=== PATIENT | male | born 1970 | race African-American/Black ===

== ENCOUNTER 2020-01-07 12:03 | Inpatient (IN) | payer OTHER ==
--- NOTE | 2020-01-07 18:20 | BHS.RME ---
Substance Use & Tx History - Substance Use History Alcohol Substance amount: 1pint of vodka/6 packs of 22 ozs of beer Frequency of use: Daily Substance route: Oral Date of Last Use: 01/07/20 Cocaine-Crack Substance amount: 200$ Frequency of use: More than 3 times per week Substance route: Smoking Date of Last Use: 01/06/20 - Last Treatment Date of last treatment: [facility] 09/19/19 to 09/23/19 Where was last treatment: Detox (09/19/19 to 10/03/19) Physical/Psych/Mental Status - Behavior Eye Contact: Normal - Cooperativeness Cooperativeness: Cooperative - Thinking Thought Processes: Logical Thought content: Future oriented - Physical Health Problems Is patient presently having any pain?: No Does patient presently have any injuries (include location): No Does patient currently have a fever: No CIWA Nausea/Vomitin Muscle Tremors: 3 Anxiety: 3 Agitation: 3 Paroxysmal Sweats: 1-Minimal Palms Moist Orientation: 0-Oriented Tacttile Disturbances: 0-None Auditory Disturbances: 0-None Visual Disturbances: 0-None Headache: 2-Mild CIWA-Ar Total Score: 14
--- NOTE | 2020-01-07 18:25 | HP ---
CIWA Score Nausea/Vomitin Muscle Tremors: 3 Anxiety: 3 Agitation: 3 Paroxysmal Sweats: 1-Minimal Palms Moist Orientation: 0-Oriented Tacttile Disturbances: 0-None Auditory Disturbances: 0-None Visual Disturbances: 0-None Headache: 2-Mild CIWA-Ar Total Score: 14 - Admission Criteria OASAS Guidelines: Admission for Medically Managed Detox: Requires at least one of the followin. CIWA greater than 12 2. Seizures within the past 24 hours 3. Delirium tremens within the past 24 hours 4. Hallucinations within the past 24 hours 5. Acute intervention needed for co occurring medical disorder 6. Acute intervention needed for co occurring psychiatric disorder 7. Severe withdrawal that cannot be handled at a lower level of care (continued vomiting, continued diarrhea, abnormal vital signs) requiring intravenous medication and/or fluids 8. Admitting History and Physical - Admission Chief Complaint: i need help to stop drinking alcohol,ccoaine abused History of Present Illness: this 50 years old male with alcohol and cocaine dependence seeking detox History Source: Patient Limitations to Obtaining History: No Limitations - Past Medical History Rheumatology: Yes: Other (osteoarthritis) Additional Past Medical History: osteoarthritis of right hip - Past Surgical History Past Surgical History: Yes: None - Smoking History Smoking history: Current every day smoker Have you smoked in the past 12 months: Yes Aproximately how many cigarettes per day: 20 - Alcohol/Substance Use Hx Alcohol Use: Yes History of Substance Use: reports: Cocaine - Social History Usual Living Arrangement: Yes: Alone Do you think of yourself as: Straight/Heterosexual (unemployed,nicotine dependence,positive eye setter machine,no legal issue) ADL: Independent Occupation: unemployed, 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 History of Recent Travel: No Admission ROS [facility] - [facility] Chief Complaint: i need help to stop drinking alcohol and cocaine Allergies/Adverse Reactions: Allergies Allergy/AdvReac Type Severity Reaction Status Date / Time Fish Containing Products Allergy Severe Swelling Verified 01/07/20 19:06 No Known Drug Allergies Allergy Unknown Verified 01/07/20 19:06 History of Present Illness: this 50 years old male with alcohol dependence,and cocaine dependence,seeking alcohol detox, multiple admissions in detox last 09/19/19 to 09/23/19 osteoarthritis of right hip on walker nicotine dependence longest sobriety 90 days plan for rehab after detox Exam Limitations: No Limitations - Ebola screening Have you traveled outside of the country in the last 21 days: No Have you had contact with anyone from an Ebola affected area: No Have you been sick,other than usual withdrawal symptoms: No Do you have a fever: No - Review of Systems Constitutional: Malaise, Night Sweats, Changes in sleep, Weakness EENT: reports: Nose Congestion Respiratory: reports: No Symptoms reported Cardiac: reports: No Symptoms Reported GI: reports: Nausea, Poor Appetite, Abdominal cramping : reports: No Symptoms Reported Musculoskeletal: reports: Back Pain, Muscle Pain Integumentary: reports: Dryness Neuro: reports: Headache, Tremors Endocrine: reports: No Symptoms Reported Hematology: reports: No Symptoms Reported Psychiatric: reports: No Sypmtoms Reported, Judgement Intact, Mood/Affect Appropiate, Orientated x3 Other Systems: Reviewed and Negative Patient History - Patient Medical History Hx Anemia: No Hx Asthma: No Hx Chronic Obstructive Pulmonary Disease (COPD): No Hx Cancer: No Hx Cardiac Disorders: No Hx Congestive Heart Failure: No Hx Hypertension: No Hx Hypercholesterolemia: No Hx Pacemaker: No HX Cerebrovascular Accident: No Hx Seizures: No Hx Dementia: No Hx Diabetes: No Hx Gastrointestinal Disorders: No Hx Liver Disease: No Hx Genitourinary Disorders: No Hx Sexually Transmitted Disorders: No Hx Renal Disease (ESRD): No Hx Thyroid Disease: No Hx Human Immunodeficiency Virus (HIV): No (2019 negative) Hx Hepatitis C: No Hx Depression: No Hx Suicide Attempt: No Hx Bipolar Disorder: No Hx Schizophrenia: No Other Medical History: no suicidal,no homicidal - Patient Surgical History Past Surgical History: No Hx Neurologic Surgery: No Hx Cataract Extraction: No Hx Cardiac Surgery: No Hx Lung Surgery: No Hx Breast Surgery: No Hx Breast Biopsy: No Hx Abdominal Surgery: No Hx Appendectomy: No Hx Cholecystectomy: No Hx Genitourinary Surgery: No Hx Section: No Hx Orthopedic Surgery: No Anesthesia Reaction: No - PPD History Previous Implant?: Yes Documented Results: Negative w/proof Date: 09/22/19 Results: 00.00 PPD to be Administered?: No - Smoking Cessation Smoking history: Current every day smoker Have you smoked in the past 12 months: Yes Aproximately how many cigarettes per day: 20 Cigars Per Day: 0 Hx Chewing Tobacco Use: No Initiated information on smoking cessation: Yes 'Breaking Loose' booklet given: 01/07/20 - Substance & Tx. History Hx Alcohol Use: Yes Hx Substance Use: Yes Substance Use Type: Alcohol, Cocaine Hx Substance Use Treatment: Yes ([facility] 09/19/19 to 09/23/19) - Substances abused Alcohol Substance route: Oral Frequency: Daily Amount used: 1 pint of vodka/6 packs of 22 ozs of beer Age of first use: 13 Date of last use: 01/07/20 Crack Substance route: Smoking Frequency: 3-6 times per week Amount used: 200$ Age of first use: 31 Date of last use: 01/06/20 Admission Physical Exam [facility] - Vital Signs Vital Signs: t97.1,p75,bp 142/85,r18 pulse ox 85 - Physical General Appearance: Yes: Appropriately Dressed, Moderate Distress, Tremorous, Irritable, Anxious HEENTM: Yes: Normocephalic, [place], Pharynx Normal Respiratory: Yes: Lungs Clear, Normal Breath Sounds, No Respiratory Distress Neck: Yes: Within Normal Limits, Supple, Trachea in good position Breast: Yes: Within Normal Limits Cardiology: Yes: Within Normal Limits, Regular Rhythm, Regular Rate Abdominal: Yes: Within Normal Limits, Normal Bowel Sounds, Soft Genitourinary: Yes: Within Normal Limits Back: Yes: Muscle Spasm Musculoskeletal: Yes: Back pain, Muscle Pain Extremities: Yes: Tremors, Other (pain in the right hip) Neurological: Yes: condenser tester II-XII NML intact, Fully Oriented, Alert, Motor Strength 5/5 Integumentary: Yes: Dry Lymphatic: Yes: Within Normal Limits - Diagnostic (1) Alcohol dependence with uncomplicated withdrawal Current Visit: No Status: Acute (2) Nicotine dependence Current Visit: No Status: Acute Qualifiers: Nicotine product type: cigarettes Substance use status: in withdrawal Qualified Code(s): F17.213 - Nicotine dependence, cigarettes, with withdrawal (3) Cocaine dependence Current Visit: No Status: Chronic Qualifiers: Substance use status: uncomplicated Qualified Code(s): F14.20 - Cocaine dependence, uncomplicated (4) Osteoarthritis (arthritis due to wear and tear of joints) Current Visit: No Status: Chronic Qualifiers: Osteoarthritis location: hip Osteoarthritis type: unspecified Laterality: bilateral Qualified Code(s): M16.0 - Bilateral primary osteoarthritis of hip (5) Walker as ambulation aid Current Visit: Yes Status: Acute Cleared for Admission [facility] - Detox or Rehab [facility] Level of Care: Medically Managed Detox Regimen/Protocol: Librium Breathalyzer - Breathalyzer Breathalyzer: 0.013 Urine Drug Screen - Test Device Lot number: [id number] Expiration date: 02/05/21 - Control Is test valid?: Yes - Results Drug screen NEGATIVE: No Urine drug screen results: JOSE G-Cocaine Inpatient Rehab Admission - Rehab Decision to Admit Inpatient rehab admission?: No
[2020-01-07] MEDS ORDERED: BISMUTH SUBSALICYLATE 524 MG/30 ML UD PO PRN (19:11)
[2020-01-07] MEDS ORDERED: ONDANSETRON *ODT* 4 MG TABLET SL ONE (19:11)
[2020-01-07] MEDS ORDERED: chlordiazePOXIDE HCL 25 MG CAPSULE PO PRN (19:11)
[2020-01-07] MEDS ORDERED: IBUPROFEN 400 MG TABLET (FP) PO PRN (19:11)
[2020-01-07] MEDS ORDERED: MAG HYDROX/AL HYDROX/SIMETH 30 ML UNIT-DOSE CUP PO PRN (19:11)
[2020-01-07] MEDS ORDERED: MENTHOL/PHENOL 1 EACH UD MM PRN (19:11)
[2020-01-07] MEDS ORDERED: MAGNESIUM HYDROX 2400MG/30ML ORAL SUSPENSION 30 ML CUP PO PRN (19:11)
[2020-01-07] MEDS ORDERED: ACETAMINOPHEN 325 MG TABLET (FP) PO PRN ×2 (19:11)
[2020-01-07] MEDS ORDERED: MAGNESIUM CITRATE 300 ML BOTTLE PO PRN (19:11)
[2020-01-07] MEDS ORDERED: METHOCARBAMOL 500 MG TABLET PO PRN (19:11)
[2020-01-07 19:14] VITALS: BMI 32.5
[2020-01-07] MEDS: hydrOXYzine PAMOATE 25 MG CAPSULE (FP) PO SCH (21:11)
[2020-01-07] MEDS: GABAPENTIN 300 MG CAPSULE PO SCH (21:12)
[2020-01-07] MEDS: THIAMINE HCL 100 MG TABLET (FP) PO SCH (21:12)
[2020-01-07] MEDS: MELATONIN 5 MG TABLETS PO SCH (22:22)
[2020-01-07] MEDS: chlordiazePOXIDE HCL 25 MG CAPSULE PO SCH (22:23)
[2020-01-08] MEDS: GABAPENTIN 300 MG CAPSULE PO SCH ×3 (05:27→22:22)
[2020-01-08] MEDS: hydrOXYzine PAMOATE 25 MG CAPSULE (FP) PO SCH ×2 (05:28→10:48)
[2020-01-08] MEDS: IBUPROFEN 400 MG TABLET (FP) PO PRN (05:28)
[2020-01-08] MEDS: chlordiazePOXIDE HCL 25 MG CAPSULE PO SCH (05:28)
[2020-01-08] MEDS ORDERED: LORazepam 1 MG TABLET PO PRN (09:56)
--- NOTE | 2020-01-08 09:57 | PN ---
S CIWA - CIWA Score Nausea/Vomitin-Mild Nausea/No Vomiting Muscle Tremors: 3 Anxiety: 3 Agitation: 2 Paroxysmal Sweats: 1-Minimal Palms Moist Orientation: 0-Oriented Tacttile Disturbances: 1-Very Mild Itch/Numbness Auditory Disturbances: 0-None Visual Disturbances: 1-Very Mild Sensitivity Headache: 1-Very Mild CIWA-Ar Total Score: 13 BHS Progress Note (SOAP) Subjective: 50 years old male admitted on 01/07/20 for alcohol withdrawal sx management treating with librium detox regiment feeling sleepy ambulating with walker slow steady reports feeling sleepy from librium requests ativan for alcohol detox discontinue librium begin ativan for alcohol withdrawal Objective: 01/08/20 09:59 Vital Signs - 24 hr 01/07/20 01/07/20 01/08/20 19:11 20:43 05:19 Temperature 97.7 F 97.1 F L 97.3 F L Pulse Rate 75 75 76 Respiratory 20 18 18 Rate Blood Pressure 149/95 121/82 149/92 O2 Sat by Pulse 95 98 Oximetry (%) 01/08/20 08:44 Temperature 97.8 F Pulse Rate 59 L Respiratory 16 Rate Blood Pressure 152/35 L O2 Sat by Pulse Oximetry (%) bp elevation 01/08/20 10:01 amlodipien 10 mg po 01/08/20 10:02 lab pending Assessment: 01/08/20 10:02 alcohol withdrawal hypertension 01/08/20 10:02 sitting on the edge of the bed eating breakfast tolerated food well Plan: ativan regiment amlodipine 10 mg po
[2020-01-08] MEDS: LORazepam 2 MG TABLET PO SCH ×3 (10:22→22:25)
[2020-01-08] MEDS: amLODIPine BESYLATE 10 MG TABLET (FP) PO SCH (10:22)
[2020-01-08] MEDS: PRENATAL VITAMINS W/ FOLIC ACID TABLET (FP) PO SCH (10:23)
[2020-01-08 12:29] LABS: HEMATOCRIT 41.2 % (35.4-49); HEMOGLOBIN 13.4 GM/dL (11.7-16.9); MCH 32.2 pg (25.7-33.7); MCHC 32.6 g/dl (32.0-35.9); MEAN CELL VOLUME 98.9 fl (80-96); MEAN PLT VOLUME 8.4 fl (7.5-11.1); PLATELET COUNT 338 K/MM3 (134-434); RBC 4.17 M/mm3 (4.00-5.60); RDW 13.6 % (11.9-15.9); WHITE BLOOD COUNT 4.6 K/mm3 (4.0-10.0)
[2020-01-08 12:46] LABS: ALBUMIN 3.4 g/dl (3.4-5.0); BLOOD UREA NITROGEN 15.5 mg/dL (7-18)
[2020-01-08 12:50] LABS: BILIRUBIN,TOTAL 0.7 mg/dL (0.2-1); TOT PROT 6.5 g/dl (6.4-8.2)
[2020-01-08] MEDS: THIAMINE HCL 100 MG TABLET (FP) PO SCH (22:22)
[2020-01-08] MEDS: MELATONIN 5 MG TABLETS PO SCH (22:22)
[2020-01-09] MEDS ORDERED: chlordiazePOXIDE HCL 25 MG CAPSULE PO SCH (05:00)
[2020-01-09] MEDS: LORazepam 2 MG TABLET PO SCH ×4 (05:32→22:10)
[2020-01-09] MEDS: IBUPROFEN 400 MG TABLET (FP) PO PRN (05:32)
[2020-01-09] MEDS: GABAPENTIN 300 MG CAPSULE PO SCH ×3 (05:32→22:10)
[2020-01-09] MEDS: PRENATAL VITAMINS W/ FOLIC ACID TABLET (FP) PO SCH (10:48)
[2020-01-09] MEDS: amLODIPine BESYLATE 10 MG TABLET (FP) PO SCH (10:49)
--- NOTE | 2020-01-09 10:55 | PN ---
S CIWA - CIWA Score Nausea/Vomitin-No Nausea/No Vomiting Muscle Tremors: 1-None Visible, but [place] Anxiety: 2 Agitation: 2 Paroxysmal Sweats: No Perspiration Orientation: 0-Oriented Tacttile Disturbances: 0-None Auditory Disturbances: 0-None Visual Disturbances: 2-Mild Sensitivity Headache: 1-Very Mild CIWA-Ar Total Score: 8 BHS Progress Note (SOAP) Subjective: 50 years old male admitted on 01/07/20 for alcohol withdrawal sx management treating with ativan detox regiment ambulating with walker slow steady from room to day room to nurse station Vital Signs - 24 hr 01/08/20 01/08/20 01/08/20 13:09 16:37 20:42 Temperature 97.5 F L 98.2 F 97.5 F L Pulse Rate 79 82 96 H Respiratory 20 18 20 Rate Blood Pressure 143/89 131/78 143/89 O2 Sat by Pulse 97 95 Oximetry (%) 01/09/20 01/09/20 06:00 08:50 Temperature 97.7 F 97.1 F L Pulse Rate 76 103 H Respiratory 16 18 Rate Blood Pressure 152/87 129/92 O2 Sat by Pulse 98 Oximetry (%) bp elevation continue amlodipine lisinopril 10 mg po bid initiated Objective: 01/09/20 10:53 Laboratory Tests 01/07/20 01/08/20 01/08/20 19:45 07:20 07:20 WBC RBC Hgb Hct MCV MCH MCHC RDW Plt Count MPV Sodium Potassium Chloride Carbon Dioxide Anion Gap BUN Creatinine Est GFR (CKD-EPI)AfAm Est GFR (CKD-EPI)NonAf Random Glucose Calcium Total Bilirubin AST ALT Alkaline Phosphatase Total Protein Albumin Syphilis Serology Non-reactive COVID-19 ([facility]IST[facility]O) Not detected HIV Ag/Ab Combo Qual Negative 01/08/20 01/08/20 07:20 07:20 WBC 4.6 RBC 4.17 Hgb 13.4 Hct 41.2 MCV 98.9 H MCH 32.2 MCHC 32.6 RDW 13.6 Plt Count 338 MPV 8.4 Sodium 143 Potassium 4.0 Chloride 114 H Carbon Dioxide 29 Anion Gap 0 L BUN 15.5 Creatinine 1.0 Est GFR (CKD-EPI)AfAm 101.26 Est GFR (CKD-EPI)NonAf 87.37 Random Glucose 91 Calcium 9.0 Total Bilirubin 0.7 AST 15 ALT 20 Alkaline Phosphatase 84 Total Protein 6.5 Albumin 3.4 Syphilis Serology COVID-19 (CRISTIANO) HIV Ag/Ab Combo Qual lab noted Assessment: 01/09/20 10:53 alcohol withdrawal hypertension obesity Plan: ativan regiment amlodipine 10 mg po lisinopril 10 mg po bid
[2020-01-09] MEDS: LISINOPRIL 10 MG TABLET (FP) PO SCH ×2 (13:04→22:10)
--- NOTE | 2020-01-09 21:25 | PN ---
S Progress Note Note: CALLED BY NURSING FOR ELEVATED BP Vital Signs - 24 hr 01/09/20 01/09/20 01/09/20 06:00 08:50 12:43 Temperature 97.7 F 97.1 F L 97.1 F L Pulse Rate 76 103 H 97 H Respiratory 16 18 20 Rate Blood Pressure 152/87 129/92 124/76 O2 Sat by Pulse 98 100 Oximetry (%) 01/09/20 16:35 Temperature 98.0 F Pulse Rate 102 H Respiratory 16 Rate Blood Pressure 145/102 H O2 Sat by Pulse Oximetry (%) p : METOPROLOL 25 MG X ONCE
[2020-01-09] MEDS ORDERED: METOPROLOL TARTRATE 25 MG TABLET (FP) PO ONE (21:30)
[2020-01-09] MEDS: MELATONIN 5 MG TABLETS PO SCH (22:10)
[2020-01-09] MEDS: THIAMINE HCL 100 MG TABLET (FP) PO SCH (22:11)
[2020-01-10] MEDS ORDERED: chlordiazePOXIDE HCL 10 MG CAPSULE PO PRN
[2020-01-10] MEDS ORDERED: chlordiazePOXIDE HCL 10 MG CAPSULE PO SCH (05:00)
[2020-01-10] MEDS: GABAPENTIN 300 MG CAPSULE PO SCH ×3 (05:22→22:44)
[2020-01-10] MEDS: LORazepam 1 MG TABLET PO SCH ×4 (05:22→22:44)
[2020-01-10] MEDS: IBUPROFEN 400 MG TABLET (FP) PO PRN (06:14)
[2020-01-10] MEDS: PRENATAL VITAMINS W/ FOLIC ACID TABLET (FP) PO SCH (10:09)
[2020-01-10] MEDS: LISINOPRIL 10 MG TABLET (FP) PO SCH (10:10)
[2020-01-10] MEDS: amLODIPine BESYLATE 10 MG TABLET (FP) PO SCH (10:10)
--- NOTE | 2020-01-10 10:29 | PN ---
S CIWA - CIWA Score Nausea/Vomitin-No Nausea/No Vomiting Muscle Tremors: 1-None Visible, but [place] Anxiety: 1-Mildly Anxious Agitation: 1-Slight > Activity Paroxysmal Sweats: No Perspiration Orientation: 0-Oriented Tacttile Disturbances: 0-None Auditory Disturbances: 0-None Visual Disturbances: 2-Mild Sensitivity Headache: 1-Very Mild CIWA-Ar Total Score: 6 BHS Progress Note (SOAP) Subjective: 50 years old male admitted on 01/07/20 for alcohol withdrawal sx management treating with ativan regiment ambulating with walker slow steady mr johnson states that he has right hip surgical procedure made on 01/20/20 and required pre op lab work encourage mr johnson bring in current lab result "the surgeon said I have too much nicotine in my blood" mr johnson requests re draw pre op blood sample sent to [facility] lab encourage mr johnson clarifies with surgical procedure facility emotional support given encourage mr johnson open conversation with the surgical facility for pre op instruction counselor and sign writer hand met with mr johnson who agrees to contact with the surgical facility for pre op blood work clarification mr johnson states that he smoke a pack of cigarette a day health teaching on cardiopulmonary insult from nicotine Objective: 01/10/20 10:29 Vital Signs - 24 hr 01/09/20 01/09/20 01/09/20 12:43 16:35 19:50 Temperature 97.1 F L 98.0 F 97.3 F L Pulse Rate 97 H 102 H 101 H Respiratory 20 16 16 Rate Blood Pressure 124/76 145/102 H 147/96 O2 Sat by Pulse 100 99 Oximetry (%) 01/10/20 01/10/20 06:09 08:28 Temperature 97.8 F 97.3 F L Pulse Rate 74 95 H Respiratory 18 20 Rate Blood Pressure 145/71 114/80 O2 Sat by Pulse 99 Oximetry (%) Laboratory Tests 01/07/20 01/08/20 01/08/20 19:45 07:20 07:20 WBC RBC Hgb Hct MCV MCH MCHC RDW Plt Count MPV Sodium Potassium Chloride Carbon Dioxide Anion Gap BUN Creatinine Est GFR (CKD-EPI)AfAm Est GFR (CKD-EPI)NonAf Random Glucose Calcium Total Bilirubin AST ALT Alkaline Phosphatase Total Protein Albumin Syphilis Serology Non-reactive COVID-19 ([facility]) Not detected HIV Ag/Ab Combo Qual Negative 01/08/20 01/08/20 07:20 07:20 WBC 4.6 RBC 4.17 Hgb 13.4 Hct 41.2 MCV 98.9 H MCH 32.2 MCHC 32.6 RDW 13.6 Plt Count 338 MPV 8.4 Sodium 143 Potassium 4.0 Chloride 114 H Carbon Dioxide 29 Anion Gap 0 L BUN 15.5 Creatinine 1.0 Est GFR (CKD-EPI)AfAm 101.26 Est GFR (CKD-EPI)NonAf 87.37 Random Glucose 91 Calcium 9.0 Total Bilirubin 0.7 AST 15 ALT 20 Alkaline Phosphatase 84 Total Protein 6.5 Albumin 3.4 Syphilis Serology COVID-19 ([facility]IST[facility]O) HIV Ag/Ab Combo Qual lab noted Assessment: 01/10/20 10:29 alcohol withdrawal Plan: ativan regiment
[2020-01-10 14:33] LABS: URINE APPEARANCE CLEAR; URINE BILIRUBIN NEGATIVE (NEGATIVE); URINE COLOR YELLOW; URINE GLUCOSE (UA) NEGATIVE (NEGATIVE); URINE KETONE NEGATIVE (NEGATIVE); URINE LEUK ESTERASE NEGATIVE (NEGATIVE); URINE NITRITE NEGATIVE (NEGATIVE); URINE PROTEIN NEGATIVE (NEGATIVE); URINE UROBILINOGEN 0.2 mg/dL (0.2-1.0)
[2020-01-10] MEDS ORDERED: LISINOPRIL 20 MG TABLET (FP) PO ONE (22:00)
[2020-01-10] MEDS: THIAMINE HCL 100 MG TABLET (FP) PO SCH (22:44)
[2020-01-10] MEDS: MELATONIN 5 MG TABLETS PO SCH (22:44)
[2020-01-11] MEDS ORDERED: LORazepam 0.5 MG TABLET PO PRN
[2020-01-11] MEDS ORDERED: chlordiazePOXIDE HCL 10 MG CAPSULE PO SCH (05:00)
[2020-01-11] MEDS: IBUPROFEN 400 MG TABLET (FP) PO PRN (06:18)
[2020-01-11] MEDS: LORazepam 0.5 MG TABLET PO SCH ×2 (06:18→10:45)
[2020-01-11] MEDS: GABAPENTIN 300 MG CAPSULE PO SCH ×2 (06:18→14:38)
[2020-01-11] MEDS ORDERED: LISINOPRIL 20 MG TABLET (FP) PO SCH (10:00)
[2020-01-11] MEDS: PRENATAL VITAMINS W/ FOLIC ACID TABLET (FP) PO SCH (10:44)
[2020-01-11] MEDS: amLODIPine BESYLATE 10 MG TABLET (FP) PO SCH (10:44)
--- NOTE | 2020-01-11 11:20 | DS ---
[facility] Detox Discharge Summary Admission Date: 01/07/20 Discharge Date: 01/11/20 - History Present History: Alcohol Dependence Additional Comments: 50 years old grossly obese male ambulating with walker was admitted on 01/07/20 for alcohol withdrawal sx management treated with ativan detox regiment mr johnson prefers to go to rehab today for his alcohol recovery alert oriented x 3 speech clearly coherently respiratory clear lung sounds bilaterally on auscultation abdomen soft round obese no rebound tenderness skin warm and dry Pertinent Past History: time for discharge 48 minutes treatment team met with mr johnson to discuss the benefits of ativan regiment completion mr johnson states that he is ready to go to [facility] for his alcohol recovery - Physical Exam Results Vital Signs: Vital Signs Temperature 97.1 F L 01/11/20 08:38 Pulse Rate 100 H 01/11/20 08:38 Respiratory Rate 20 01/11/20 08:38 Blood Pressure 94/67 01/11/20 08:38 O2 Sat by Pulse Oximetry (%) 95 01/11/20 06:39 Pertinent Admission Physical Exam Findings: alcohol withdrawal Vital Signs - 24 hr 01/10/20 01/10/20 01/10/20 12:36 16:54 20:54 Temperature 97.8 F 97.5 F L 98.0 F Pulse Rate 67 95 H 87 Respiratory 20 18 18 Rate Blood Pressure 117/75 129/92 130/91 O2 Sat by Pulse 95 96 Oximetry (%) 01/11/20 01/11/20 06:39 08:38 Temperature 97.5 F L 97.1 F L Pulse Rate 80 100 H Respiratory 18 20 Rate Blood Pressure 130/89 94/67 O2 Sat by Pulse 95 Oximetry (%) long history of hypertension tolerates amlodipine and lisinopril well encourage bp monitoring prior to antihypertensive medication administration - Treatment Hospital Course: Detox Protocol Followed, Detoxed Safely, Responded well, Discharged Condition Good, Rehab Referral Accepted Patient has Accepted a Rehab Referral to: [facility] - Medication Discharge Medications: Ambulatory Orders Gabapentin 300 mg PO TID 09/19/19 Gabapentin [Neurontin -] 300 mg PO TID capsule 09/23/19 Ibuprofen [Motrin -] 800 mg PO TID PRN tablet 09/23/19 - Diagnosis (1) Substance induced mood disorder Current Visit: Yes Status: Suspected (2) Hypertension Current Visit: Yes Status: Chronic Qualifiers: Hypertension type: essential hypertension Qualified Code(s): I10 - Essential (primary) hypertension (3) Nicotine dependence Current Visit: Yes Status: Acute Qualifiers: Nicotine product type: cigarettes Substance use status: in withdrawal Qualified Code(s): F17.213 - Nicotine dependence, cigarettes, with withdrawal (4) Alcohol dependence with uncomplicated withdrawal Current Visit: Yes Status: Acute (5) Walker as ambulation aid Current Visit: Yes Status: Chronic - AMA Did Patient Leave Against Medical Advice: No CIWA Score - CIWA Score Nausea/Vomitin-No Nausea/No Vomiting Muscle Tremors: 1-None Visible, but [place] Anxiety: 1-Mildly Anxious Agitation: 0-Normal Activity Paroxysmal Sweats: No Perspiration Orientation: 0-Oriented Tacttile Disturbances: 0-None Auditory Disturbances: 0-None Visual Disturbances: 1-Very Mild Sensitivity Headache: 0-None Present CIWA-Ar Total Score: 3
[2020-01-11 13:19] VITALS: BP 107/80; PULSE 118; TEMP 97.3
[2020-01-12] MEDS ORDERED: LORazepam 0.5 MG TABLET PO ONE (05:00)
[2020-01-12] MEDS ORDERED: chlordiazePOXIDE HCL 10 MG CAPSULE PO ONE (05:00)
== END 2020-01-11 15:34 | disposition other institution (70) | DRG 774 ==
LOC: YASAS 12:03 → Y3N 19:04
PROVIDERS: ADMIT Allergy & Immunology; ATTEND Allergy & Immunology
PROC: HZ2ZZZZ Detoxification Services for Substance Abuse Treatment (ICD-10-PCS; principal; 2020-01-07)
DX: F10.230 Alcohol dependence with withdrawal, uncomplicated (principal); F14.20 Cocaine dependence, uncomplicated; F17.213 Nicotine dependence, cigarettes, with withdrawal; F19.24 Other psychoactive substance dependence with psychoactive substance-induced mood disorder; I10 Essential (primary) hypertension; M16.0 Bilateral primary osteoarthritis of hip; E66.9 Obesity, unspecified; Z68.32 Body mass index [BMI] 32.0-32.9, adult; R26.2 Difficulty in walking, not elsewhere classified; Z99.89 Dependence on other enabling machines and devices; Z91.013 Allergy to seafood
CPT/HCPCS: 36415; 80053; 81003; 85027; 86780; 87389; U0003

== ENCOUNTER 2020-01-11 15:36 | Inpatient (IN) | payer OTHER ==
--- NOTE | 2020-01-11 11:23 | HP ---
[facility] Rehab Assess/Revision - Admission History Admitted to Rehab from: [facility] Date of Admission to Rehab: 01/11/20 - Findings Detox History & Physical reviewed: Yes Concur with findings: Yes Comments/Additional Findings: trasnferred from detox to rehab admission as per protocol Inpatient Rehab Admission - Rehab Decision to Admit Inpatient rehab admission?: Yes - Initial Determination Are CD services needed?: Yes Free of communicable disease: Yes Not in need of hospitalization: Yes - Rehab Admission Criteria Previous failed treatment: Yes Poor recovery environment: Yes Comorbidities: Yes Lacks judgement: Yes Patient is meeting Inpatient Rehab admission criteria:: Yes
[~2020-01-11 15:36] MED LIST: LOPERAMIDE HCL 2 MG CAPSULE PO PRN; MAGNESIUM CITRATE 300 ML BOTTLE PO PRN; MAGNESIUM HYDROX 2400MG/30ML ORAL SUSPENSION 30 ML CUP PO PRN; NICOTINE POLACRILEX 2 MG GUM BUC PRN; P-EPHED 60MG/TRIPROLIDI 2.5MG TABLET PO PRN; guaiFENesin 200 MG/10 ML 10 ML UNIT-DOSE CUPS PO PRN
[2020-01-11] MEDS: hydrOXYzine PAMOATE 25 MG CAPSULE (FP) PO SCH ×2 (17:59→21:45)
[2020-01-11] MEDS: MELATONIN 5 MG TABLETS PO SCH (21:45)
[2020-01-11] MEDS: GABAPENTIN 300 MG CAPSULE PO SCH ×2 (21:45→21:46)
[2020-01-11] MEDS: THIAMINE HCL 100 MG TABLET (FP) PO SCH (21:45)
[2020-01-11] MEDS: LISINOPRIL 20 MG TABLET (FP) PO SCH (21:47)
[2020-01-11] MEDS: IBUPROFEN 400 MG TABLET (FP) PO PRN (21:48)
[2020-01-12] MEDS: hydrOXYzine PAMOATE 25 MG CAPSULE (FP) PO SCH ×2 (06:26→09:55)
[2020-01-12] MEDS: GABAPENTIN 300 MG CAPSULE PO SCH ×3 (06:26→23:41)
[2020-01-12] MEDS: IBUPROFEN 400 MG TABLET (FP) PO PRN ×2 (06:26→13:50)
[2020-01-12] MEDS: PRENATAL VITAMINS W/ FOLIC ACID TABLET (FP) PO SCH (09:54)
[2020-01-12] MEDS: amLODIPine BESYLATE 10 MG TABLET (FP) PO SCH (09:54)
[2020-01-12] MEDS: LISINOPRIL 20 MG TABLET (FP) PO SCH ×2 (09:54→23:41)
[2020-01-12] MEDS: NICOTINE 7 MG/24 HOURS TOPICAL PATCH TD SCH (09:55)
[2020-01-12] MEDS ORDERED: PT OWN MED DRAWER 7, Y5N ONE (13:19)
[2020-01-12] MEDS: MELATONIN 5 MG TABLETS PO SCH (23:41)
[2020-01-12] MEDS: THIAMINE HCL 100 MG TABLET (FP) PO SCH (23:41)
[2020-01-13] MEDS: IBUPROFEN 400 MG TABLET (FP) PO PRN ×3 (01:41→19:31)
[2020-01-13] MEDS: GABAPENTIN 300 MG CAPSULE PO SCH ×3 (06:43→21:19)
[2020-01-13] MEDS: amLODIPine BESYLATE 10 MG TABLET (FP) PO SCH (10:04)
[2020-01-13] MEDS: PRENATAL VITAMINS W/ FOLIC ACID TABLET (FP) PO SCH (10:04)
[2020-01-13] MEDS: NICOTINE 7 MG/24 HOURS TOPICAL PATCH TD SCH (10:04)
[2020-01-13] MEDS: LISINOPRIL 20 MG TABLET (FP) PO SCH ×2 (10:04→21:19)
[2020-01-13] MEDS: ACETAMINOPHEN 325 MG TABLET (FP) PO PRN ×2 (13:37→21:22)
[2020-01-13] MEDS: MELATONIN 5 MG TABLETS PO SCH (21:19)
[2020-01-13] MEDS: THIAMINE HCL 100 MG TABLET (FP) PO SCH (21:19)
[2020-01-14] MEDS: GABAPENTIN 300 MG CAPSULE PO SCH ×3 (06:27→22:05)
[2020-01-14] MEDS: IBUPROFEN 400 MG TABLET (FP) PO PRN ×3 (06:27→23:43)
[2020-01-14] MEDS: LISINOPRIL 20 MG TABLET (FP) PO SCH ×2 (09:14→22:05)
[2020-01-14] MEDS: amLODIPine BESYLATE 10 MG TABLET (FP) PO SCH (09:14)
[2020-01-14] MEDS: ACETAMINOPHEN 325 MG TABLET (FP) PO PRN ×2 (09:14→18:29)
[2020-01-14] MEDS: PRENATAL VITAMINS W/ FOLIC ACID TABLET (FP) PO SCH (09:15)
[2020-01-14] MEDS: NICOTINE 7 MG/24 HOURS TOPICAL PATCH TD SCH (09:15)
[2020-01-14] MEDS: CYCLOBENZAPRINE HCL 10 MG TABLET (FP) PO PRN ×2 (13:17→22:05)
[2020-01-14] MEDS: hydrOXYzine PAMOATE 25 MG CAPSULE (FP) PO PRN ×2 (15:13→22:05)
[2020-01-14] MEDS: MELATONIN 5 MG TABLETS PO SCH (22:04)
[2020-01-14] MEDS: THIAMINE HCL 100 MG TABLET (FP) PO SCH (22:04)
[2020-01-14] MEDS: MAG HYDROX/AL HYDROX/SIMETH 30 ML UNIT-DOSE CUP PO PRN (23:43)
[2020-01-15] MEDS: IBUPROFEN 400 MG TABLET (FP) PO PRN ×2 (06:24→19:18)
[2020-01-15] MEDS: GABAPENTIN 300 MG CAPSULE PO SCH ×3 (06:24→22:18)
[2020-01-15] MEDS: CYCLOBENZAPRINE HCL 10 MG TABLET (FP) PO PRN (06:24)
[2020-01-15] MEDS: LISINOPRIL 20 MG TABLET (FP) PO SCH ×2 (09:56→22:19)
[2020-01-15] MEDS: amLODIPine BESYLATE 10 MG TABLET (FP) PO SCH (09:56)
[2020-01-15] MEDS: PRENATAL VITAMINS W/ FOLIC ACID TABLET (FP) PO SCH (09:56)
[2020-01-15] MEDS: NICOTINE 7 MG/24 HOURS TOPICAL PATCH TD SCH (09:56)
[2020-01-15] MEDS: ACETAMINOPHEN 325 MG TABLET (FP) PO PRN (09:57)
[2020-01-15] MEDS: hydrOXYzine PAMOATE 25 MG CAPSULE (FP) PO PRN ×2 (13:01→19:20)
[2020-01-15] MEDS: MAG HYDROX/AL HYDROX/SIMETH 30 ML UNIT-DOSE CUP PO PRN (19:17)
[2020-01-15] MEDS: MELATONIN 5 MG TABLETS PO SCH (22:18)
[2020-01-15] MEDS: THIAMINE HCL 100 MG TABLET (FP) PO SCH (22:19)
[2020-01-16] MEDS: GABAPENTIN 300 MG CAPSULE PO SCH ×3 (06:00→22:14)
[2020-01-16] MEDS: IBUPROFEN 400 MG TABLET (FP) PO PRN ×3 (06:00→17:06)
[2020-01-16] MEDS: CYCLOBENZAPRINE HCL 10 MG TABLET (FP) PO PRN (06:01)
[2020-01-16] MEDS: PRENATAL VITAMINS W/ FOLIC ACID TABLET (FP) PO SCH (10:02)
[2020-01-16] MEDS: hydrOXYzine PAMOATE 25 MG CAPSULE (FP) PO PRN (10:02)
[2020-01-16] MEDS: NICOTINE 7 MG/24 HOURS TOPICAL PATCH TD SCH (10:03)
[2020-01-16] MEDS: LISINOPRIL 20 MG TABLET (FP) PO SCH (10:05)
[2020-01-16] MEDS: amLODIPine BESYLATE 10 MG TABLET (FP) PO SCH (10:45)
[2020-01-16] MEDS: ACETAMINOPHEN 325 MG TABLET (FP) PO PRN ×2 (15:34→22:14)
--- NOTE | 2020-01-16 15:52 | PN ---
[facility] Progress Note Note: As per the nurse, Ms Mounika Kapadia, the pt has preop appointment tomorrow for scheduled surgery of 01/27/20 at [facility]. Also spoke to his counselor, Ms Gunnar Small who was communicated to by the [facility]. She reports she has made transportation arrangements for pt's safe discharge in the morning. Vital Signs - 24 hr 01/15/20 01/15/20 01/16/20 20:42 21:24 06:37 Pulse Rate 110 H 109 H Respiratory 18 Rate Blood Pressure 106/70 149/84 O2 Sat by Pulse 95 97 Oximetry (%) 01/16/20 01/16/20 10:00 15:10 Pulse Rate 110 H Respiratory Rate Blood Pressure 102/78 O2 Sat by Pulse 97 Oximetry (%) Pt may be discharged tomorrow to follow up with his doctors for his scheduled preop clearance /surgery. Saw pt who is agreeable to poc.
--- NOTE | 2020-01-16 17:04 | DS ---
[facility] Rehab Discharge Summary - [facility] Rehab Discharge Summary Admission Date: 01/11/20 Discharge Date: 01/17/20 - History Present History: Alcohol dependence, Cocaine dependence Additional Comments: Pt reports he has a Surgeon, Dr. Antunez and previous primary care in the [place]. Reports he would like to stay under one location and will set up primary care with [facility] when discharged. Pertinent Past History: Seasonal Allergies Osteoarthritis Chronic Hip condition(scheduled for surgery on 01/27/20 at orthopedic [place] [facility] with Dr. Smith Antunez per pt and pt document) Walker as ambulatory aid - Discharge Physical Exam Vital Signs: Vital Signs Temperature 97.2 F L 01/15/20 07:09 Pulse Rate 110 H 01/16/20 10:00 Respiratory Rate 18 01/16/20 06:37 Blood Pressure 102/78 01/16/20 10:00 O2 Sat by Pulse Oximetry (%) 97 01/16/20 15:10 Alert o x 3 nad oob ambulating with walker Head;Normocephalic,Cassie,eomi cardiac:s1 s2, rrr lungs:ctab Abdomen:soft,+bs,nt,nd extremities:no edema,skin intact Pertinent Admission Physical Exam Findings: Pt was referred from detox. Stable and unchanged - Treatment Discharge Condition: Discharge condition good (Pt was seen on 01/16/20 and medically stable.) Hospital Course: Pt completed detox and was referred to rehab but has to follow up for preop appointment for surgery of Hip tomorrow, 01/17/20. Pt was referred to aftercare and will follow up with [facility] for CD program. - Medication Discharge Medications: Ambulatory Orders Gabapentin 300 mg PO TID 09/19/19 Gabapentin [Neurontin -] 300 mg PO TID capsule 09/23/19 Ibuprofen [Motrin -] 800 mg PO TID PRN tablet 09/23/19 Gabapentin 300 mg PO TID 01/12/20 - Medication-Assisted Treatment (MAT) Medication-Assisted Treatment (MAT): No - Discharge Instructions Diet, activity, other medical instructions: Diet:Regular Activity: oob ad linette with walker Other medical instructions:Follow up with scheduled appointments as recommended. - Diagnosis (1) Alcohol use disorder Status: Chronic (2) Nicotine dependence Status: Chronic Qualifiers: Nicotine product type: cigarettes Substance use status: uncomplicated Qualified Code(s): F17.210 - Nicotine dependence, cigarettes, uncomplicated (3) Cocaine dependence Status: Chronic Qualifiers: Substance use status: uncomplicated Qualified Code(s): F14.20 - Cocaine dependence, uncomplicated (4) Osteoarthritis (arthritis due to wear and tear of joints) Status: Chronic Qualifiers: Osteoarthritis location: hip Osteoarthritis type: unspecified Laterality: bilateral Qualified Code(s): M16.0 - Bilateral primary osteoarthritis of hip (5) Seasonal allergies Status: Chronic Qualifiers: Allergic rhinitis trigger: other Qualified Code(s): J30.89 - Other allergic rhinitis (6) Walker as ambulation aid Status: Chronic - Follow-up Referral Minutes to complete discharge: 25 - AMA Did Patient Leave Against Medical Advice: No Additional Comments: addendum:pt declined Lisinopril and Norvasc ordered in detox due to elevated BP. reports no hx of HTN or Medications. Pt states he will like to follow up with primary care for further evaluation if necessary. Pt reports he has own Gabapentin at home.
[2020-01-16] MEDS ORDERED: cloNIDine HCL 0.1 MG TABLET PO PRN (17:21)
[2020-01-16] MEDS: THIAMINE HCL 100 MG TABLET (FP) PO SCH (22:14)
[2020-01-16] MEDS: MELATONIN 5 MG TABLETS PO SCH (22:14)
[2020-01-16] MEDS: MAG HYDROX/AL HYDROX/SIMETH 30 ML UNIT-DOSE CUP PO PRN (22:17)
[2020-01-17] MEDS: IBUPROFEN 400 MG TABLET (FP) PO PRN (02:51)
[2020-01-17] MEDS: GABAPENTIN 300 MG CAPSULE PO SCH (06:38)
[2020-01-17 07:44] VITALS: BP 130/85; PULSE 105; TEMP 98.2
--- NOTE | 2020-01-17 07:46 | PN ---
[facility] Progress Note Note: Patient is scheduled for early discharge today was seen and evaluated at bedside. He is alert and oriented x 3, in no acute distress, ambulates with a walker and vital signs stable. Patient is medically stable to be discharged home today. He is to follow up with Dr. Antunez at [facility] for preop. surgical evaluation. Patient's pulse rate is HR 105. Patient instructed to follow up with his PCP. Vital Signs Temperature 98.2 F 01/17/20 06:45 Pulse Rate 105 H 01/17/20 06:45 Respiratory Rate 18 01/17/20 06:45 Blood Pressure 130/85 01/17/20 06:45 O2 Sat by Pulse Oximetry (%) 98 01/17/20 06:45 Action: Discharged safely to home [employer] [facility] as per prior arrangement
== END 2020-01-17 07:00 | disposition home or self-care (01) | DRG 772 ==
LOC: YASAS 15:36 → Y3E 15:38
PROVIDERS: ADMIT Allergy & Immunology; ATTEND Allergy & Immunology
PROC: HZ42ZZZ Group Counseling for Substance Abuse Treatment, Cognitive-Behavioral (ICD-10-PCS; principal; 2020-01-11)
DX: F10.20 Alcohol dependence, uncomplicated (principal); F14.20 Cocaine dependence, uncomplicated; F17.210 Nicotine dependence, cigarettes, uncomplicated; M16.0 Bilateral primary osteoarthritis of hip; J30.89 Other allergic rhinitis; R26.2 Difficulty in walking, not elsewhere classified; Z99.89 Dependence on other enabling machines and devices

== ENCOUNTER 2020-07-10 10:41 | Inpatient (IN) | payer OTHER ==
[2020-07-10] MEDS ORDERED: MAGNESIUM CITRATE 300 ML BOTTLE PO PRN (12:15)
[2020-07-10] MEDS ORDERED: ACETAMINOPHEN 325 MG TABLET (FP) PO PRN ×2 (12:15)
[2020-07-10] MEDS ORDERED: MAGNESIUM HYDROX 2400MG/30ML ORAL SUSPENSION 30 ML CUP PO PRN (12:15)
[2020-07-10] MEDS ORDERED: MAG HYDROX/AL HYDROX/SIMETH 30 ML UNIT-DOSE CUP PO PRN (12:15)
[2020-07-10] MEDS ORDERED: MENTHOL/PHENOL 1 EACH UD MM PRN (12:15)
[2020-07-10] MEDS ORDERED: chlordiazePOXIDE HCL 25 MG CAPSULE PO PRN (12:15)
[2020-07-10] MEDS ORDERED: NICOTINE POLACRILEX 2 MG GUM BUC PRN (12:15)
[2020-07-10] MEDS ORDERED: METHOCARBAMOL 500 MG TABLET PO PRN (12:15)
[2020-07-10] MEDS ORDERED: ONDANSETRON *ODT* 4 MG TABLET SL PRN (12:15)
[2020-07-10 12:21] VITALS: BMI 34.0
[2020-07-10] MEDS: hydrOXYzine PAMOATE 25 MG CAPSULE (FP) PO SCH ×3 (13:27→23:07)
[2020-07-10] MEDS: GABAPENTIN 400 MG CAPSULE PO SCH ×2 (13:27→23:06)
[2020-07-10] MEDS: NICOTINE 14 MG/24 HOURS TOPICAL PATCH TD SCH (13:27)
[2020-07-10] MEDS: chlordiazePOXIDE HCL 25 MG CAPSULE PO SCH ×2 (18:26→23:07)
[2020-07-10] MEDS: BISMUTH SUBSALICYLATE 262 MG/15 ML BTL PO PRN (18:27)
[2020-07-10 18:57] LABS: HEMATOCRIT 38.2 % (35.4-49); HEMOGLOBIN 12.8 GM/dL (11.7-16.9); MCH 31.4 pg (25.7-33.7); MCHC 33.6 g/dl (32.0-35.9); MEAN CELL VOLUME 93.5 fl (80-96); MEAN PLT VOLUME 8.6 fl (7.5-11.1); PLATELET COUNT 412 K/MM3 (134-434); RBC 4.09 M/mm3 (4.00-5.60); RDW 13.7 % (11.9-15.9); WHITE BLOOD COUNT 8.3 K/mm3 (4.0-10.0)
[2020-07-10 18:58] LABS: POTASSIUM 3.4 mmol/L (3.5-5.1)
[2020-07-10 19:03] LABS: CALCIUM 9.8 mg/dL (8.5-10.1)
[2020-07-10 19:04] LABS: ALBUMIN 4.2 g/dl (3.4-5.0); BLOOD UREA NITROGEN 11.4 mg/dL (7-18)
[2020-07-10 19:07] LABS: BILIRUBIN,TOTAL 0.7 mg/dL (0.2-1)
[2020-07-10] MEDS: MELATONIN 5 MG TABLETS PO SCH (23:06)
[2020-07-10] MEDS: THIAMINE HCL 100 MG TABLET (FP) PO SCH (23:07)
[2020-07-11] MEDS: chlordiazePOXIDE HCL 25 MG CAPSULE PO SCH ×4 (05:57→22:37)
[2020-07-11] MEDS: GABAPENTIN 400 MG CAPSULE PO SCH ×3 (05:58→22:38)
[2020-07-11] MEDS: hydrOXYzine PAMOATE 25 MG CAPSULE (FP) PO SCH ×5 (05:59→22:38)
[2020-07-11] MEDS: LORATADINE 10 MG TABLET PO SCH (10:37)
[2020-07-11] MEDS: PRENATAL VITAMINS W/ FOLIC ACID TABLET (FP) PO SCH (10:38)
[2020-07-11] MEDS: NICOTINE 14 MG/24 HOURS TOPICAL PATCH TD SCH (10:38)
[2020-07-11] MEDS ORDERED: POTASSIUM CHLORIDE ORAL LIQUID 20 MEQ/15 ML PO ONE (16:40)
[2020-07-11] MEDS: THIAMINE HCL 100 MG TABLET (FP) PO SCH (22:38)
[2020-07-11] MEDS: MELATONIN 5 MG TABLETS PO SCH (22:38)
[2020-07-11] MEDS: POTASSIUM CHLORIDE ORAL LIQUID 20 MEQ/15 ML PO SCH (22:38)
[2020-07-12] MEDS: GABAPENTIN 400 MG CAPSULE PO SCH ×3 (05:26→22:58)
[2020-07-12] MEDS: hydrOXYzine PAMOATE 25 MG CAPSULE (FP) PO SCH ×5 (06:25→22:59)
[2020-07-12] MEDS: chlordiazePOXIDE HCL 25 MG CAPSULE PO SCH ×4 (06:26→22:59)
[2020-07-12] MEDS: LORATADINE 10 MG TABLET PO SCH (10:16)
[2020-07-12] MEDS: NICOTINE 14 MG/24 HOURS TOPICAL PATCH TD SCH (10:16)
[2020-07-12] MEDS: PRENATAL VITAMINS W/ FOLIC ACID TABLET (FP) PO SCH (10:17)
[2020-07-12] MEDS: POTASSIUM CHLORIDE ORAL LIQUID 20 MEQ/15 ML PO SCH ×2 (10:18→22:59)
[2020-07-12 12:30] LABS: POTASSIUM 4.2 mmol/L (3.5-5.1)
[2020-07-12 12:37] LABS: BLOOD UREA NITROGEN 12.2 mg/dL (7-18); CALCIUM 9.2 mg/dL (8.5-10.1)
[2020-07-12 12:38] LABS: ALBUMIN 3.4 g/dl (3.4-5.0)
[2020-07-12 12:40] LABS: BILIRUBIN,TOTAL 0.6 mg/dL (0.2-1); TOT PROT 6.6 g/dl (6.4-8.2)
[2020-07-12 12:41] LABS: CREATININE 0.8 mg/dL (0.55-1.3)
[2020-07-12 14:25] LABS: INR 1.03 (0.83-1.09); PROTHROMBIN TIME (PATIENT) 12.6 SEC (9.7-13.0)
[2020-07-12] MEDS: IBUPROFEN 400 MG TABLET (FP) PO PRN (22:57)
[2020-07-12] MEDS: THIAMINE HCL 100 MG TABLET (FP) PO SCH (22:58)
[2020-07-12] MEDS: MELATONIN 5 MG TABLETS PO SCH (22:59)
[2020-07-13] MEDS ORDERED: chlordiazePOXIDE HCL 10 MG CAPSULE PO PRN
[2020-07-13] MEDS: GABAPENTIN 400 MG CAPSULE PO SCH ×3 (06:13→23:00)
[2020-07-13] MEDS: hydrOXYzine PAMOATE 25 MG CAPSULE (FP) PO SCH ×5 (06:13→23:00)
[2020-07-13] MEDS: chlordiazePOXIDE HCL 10 MG CAPSULE PO SCH ×4 (06:13→23:04)
[2020-07-13] MEDS: LORATADINE 10 MG TABLET PO SCH (10:10)
[2020-07-13] MEDS: PRENATAL VITAMINS W/ FOLIC ACID TABLET (FP) PO SCH (10:10)
[2020-07-13] MEDS: NICOTINE 14 MG/24 HOURS TOPICAL PATCH TD SCH (10:11)
[2020-07-13] MEDS: BISMUTH SUBSALICYLATE 262 MG/15 ML BTL PO PRN ×3 (10:13→19:25)
[2020-07-13] MEDS: MELATONIN 5 MG TABLETS PO SCH (23:00)
[2020-07-13] MEDS: THIAMINE HCL 100 MG TABLET (FP) PO SCH (23:00)
[2020-07-14] MEDS: chlordiazePOXIDE HCL 10 MG CAPSULE PO SCH ×2 (05:49→17:31)
[2020-07-14] MEDS: GABAPENTIN 400 MG CAPSULE PO SCH ×3 (05:50→21:47)
[2020-07-14] MEDS: hydrOXYzine PAMOATE 25 MG CAPSULE (FP) PO SCH ×5 (05:50→22:47)
[2020-07-14] MEDS: NICOTINE 14 MG/24 HOURS TOPICAL PATCH TD SCH (11:08)
[2020-07-14] MEDS: PRENATAL VITAMINS W/ FOLIC ACID TABLET (FP) PO SCH (11:08)
[2020-07-14] MEDS: LORATADINE 10 MG TABLET PO SCH (11:08)
[2020-07-14] MEDS: IBUPROFEN 400 MG TABLET (FP) PO PRN (17:32)
[2020-07-14] MEDS: MELATONIN 5 MG TABLETS PO SCH (22:47)
[2020-07-14] MEDS: THIAMINE HCL 100 MG TABLET (FP) PO SCH (22:47)
[2020-07-15] MEDS ORDERED: chlordiazePOXIDE HCL 10 MG CAPSULE PO ONE (05:00)
[2020-07-15] MEDS: GABAPENTIN 400 MG CAPSULE PO SCH ×2 (05:46→13:11)
[2020-07-15] MEDS: hydrOXYzine PAMOATE 25 MG CAPSULE (FP) PO SCH ×3 (05:47→14:55)
[2020-07-15 09:35] VITALS: TEMP 97.3
[2020-07-15] MEDS: PRENATAL VITAMINS W/ FOLIC ACID TABLET (FP) PO SCH (11:07)
[2020-07-15] MEDS: NICOTINE 14 MG/24 HOURS TOPICAL PATCH TD SCH (11:07)
[2020-07-15] MEDS: LORATADINE 10 MG TABLET PO SCH (11:41)
[2020-07-15 13:53] VITALS: BP 138/86; PULSE 108
== END 2020-07-15 15:41 | disposition other institution (70) | DRG 774 ==
LOC: YASAS 10:41 → Y6N 12:52
PROVIDERS: ADMIT Allergy & Immunology; ATTEND Allergy & Immunology
PROC: HZ2ZZZZ Detoxification Services for Substance Abuse Treatment (ICD-10-PCS; principal; 2020-07-10)
DX: F10.230 Alcohol dependence with withdrawal, uncomplicated (principal); F14.20 Cocaine dependence, uncomplicated; F17.213 Nicotine dependence, cigarettes, with withdrawal; F19.24 Other psychoactive substance dependence with psychoactive substance-induced mood disorder; E87.6 Hypokalemia; I10 Essential (primary) hypertension; M25.551 Pain in right hip; Z96.642 Presence of left artificial hip joint; Z99.89 Dependence on other enabling machines and devices; Z91.013 Allergy to seafood
CPT/HCPCS: 36415; 80053; 82947; 85027; 85610; 86780; 87389; C9803; U0003

== ENCOUNTER 2020-07-15 15:52 | Inpatient (IN) | payer OTHER ==
[~2020-07-15 15:52] MED LIST changes: +MAG HYDROX/AL HYDROX/SIMETH 30 ML UNIT-DOSE CUP PO PRN; +NICOTINE POLACRILEX 2 MG GUM BC PRN; -NICOTINE POLACRILEX 2 MG GUM BUC PRN
[2020-07-15] MEDS: GABAPENTIN 400 MG CAPSULE PO SCH ×2 (16:03→21:17)
[2020-07-15] MEDS: MELATONIN 5 MG TABLETS PO SCH (21:17)
[2020-07-15] MEDS: THIAMINE HCL 100 MG TABLET (FP) PO SCH (21:18)
[2020-07-16] MEDS: GABAPENTIN 400 MG CAPSULE PO SCH ×3 (06:12→21:30)
[2020-07-16] MEDS: LORATADINE 10 MG TABLET PO SCH (11:55)
[2020-07-16] MEDS: NICOTINE 14 MG/24 HOURS TOPICAL PATCH TD SCH (11:55)
[2020-07-16] MEDS: PRENATAL VITAMINS W/ FOLIC ACID TABLET (FP) PO SCH (11:55)
[2020-07-16] MEDS: METHOCARBAMOL 500 MG TABLET PO PRN ×2 (14:31→21:30)
[2020-07-16] MEDS: MELATONIN 5 MG TABLETS PO SCH (21:30)
[2020-07-16] MEDS: THIAMINE HCL 100 MG TABLET (FP) PO SCH (21:30)
[2020-07-16] MEDS: IBUPROFEN 400 MG TABLET (FP) PO PRN (21:31)
[2020-07-17] MEDS: GABAPENTIN 400 MG CAPSULE PO SCH ×3 (06:02→21:50)
[2020-07-17] MEDS: ACETAMINOPHEN 325 MG TABLET (FP) PO PRN (06:03)
[2020-07-17] MEDS: LORATADINE 10 MG TABLET PO SCH (10:19)
[2020-07-17] MEDS: PRENATAL VITAMINS W/ FOLIC ACID TABLET (FP) PO SCH (10:20)
[2020-07-17] MEDS: NICOTINE 14 MG/24 HOURS TOPICAL PATCH TD SCH (10:20)
[2020-07-17] MEDS: METHOCARBAMOL 500 MG TABLET PO PRN ×2 (10:21→16:55)
[2020-07-17] MEDS: IBUPROFEN 400 MG TABLET (FP) PO PRN ×2 (14:15→19:40)
[2020-07-17] MEDS: MELATONIN 5 MG TABLETS PO SCH (21:49)
[2020-07-17] MEDS: THIAMINE HCL 100 MG TABLET (FP) PO SCH (21:50)
[2020-07-18] MEDS: IBUPROFEN 400 MG TABLET (FP) PO PRN ×3 (06:06→18:10)
[2020-07-18] MEDS: METHOCARBAMOL 500 MG TABLET PO PRN ×2 (06:06→12:33)
[2020-07-18] MEDS: GABAPENTIN 400 MG CAPSULE PO SCH ×3 (06:07→21:59)
[2020-07-18] MEDS: PRENATAL VITAMINS W/ FOLIC ACID TABLET (FP) PO SCH (10:10)
[2020-07-18] MEDS: LORATADINE 10 MG TABLET PO SCH (10:10)
[2020-07-18] MEDS: NICOTINE 14 MG/24 HOURS TOPICAL PATCH TD SCH (10:10)
[2020-07-18] MEDS: ACETAMINOPHEN 325 MG TABLET (FP) PO PRN ×2 (10:11→22:52)
[2020-07-18] MEDS: MELATONIN 5 MG TABLETS PO SCH (21:59)
[2020-07-18] MEDS: THIAMINE HCL 100 MG TABLET (FP) PO SCH (21:59)
[2020-07-19] MEDS: GABAPENTIN 400 MG CAPSULE PO SCH (07:09)
[2020-07-19] MEDS: IBUPROFEN 400 MG TABLET (FP) PO PRN (07:09)
[2020-07-19] MEDS: METHOCARBAMOL 500 MG TABLET PO PRN (07:09)
[2020-07-19 07:12] VITALS: BP 135/94; PULSE 97; TEMP 97.5
== END 2020-07-19 09:15 | disposition home or self-care (01) | DRG 772 ==
LOC: YASAS 15:52 → Y5N 15:53
PROVIDERS: ADMIT Allergy & Immunology; ATTEND Allergy & Immunology
PROC: HZ42ZZZ Group Counseling for Substance Abuse Treatment, Cognitive-Behavioral (ICD-10-PCS; principal; 2020-07-15)
DX: F10.20 Alcohol dependence, uncomplicated (principal); F14.20 Cocaine dependence, uncomplicated; F17.210 Nicotine dependence, cigarettes, uncomplicated; I10 Essential (primary) hypertension; J30.2 Other seasonal allergic rhinitis; Z96.643 Presence of artificial hip joint, bilateral; Z99.89 Dependence on other enabling machines and devices; Z91.013 Allergy to seafood
CPT/HCPCS: C9803; U0003

== ENCOUNTER 2020-08-10 10:43 | Inpatient (IN) | payer OTHER ==
[2020-08-10 11:28] VITALS: BMI 34.4
[2020-08-10] MEDS ORDERED: MENTHOL/PHENOL 1 EACH UD MM PRN (11:54)
[2020-08-10] MEDS ORDERED: ACETAMINOPHEN 325 MG TABLET (FP) PO PRN ×2 (11:54)
[2020-08-10] MEDS ORDERED: MAGNESIUM HYDROX 2400MG/30ML ORAL SUSPENSION 30 ML CUP PO PRN (11:54)
[2020-08-10] MEDS ORDERED: NICOTINE POLACRILEX 2 MG GUM BUC PRN (11:54)
[2020-08-10] MEDS ORDERED: MAG HYDROX/AL HYDROX/SIMETH 30 ML UNIT-DOSE CUP PO PRN (11:54)
[2020-08-10] MEDS ORDERED: MAGNESIUM CITRATE 300 ML BOTTLE PO PRN (11:54)
[2020-08-10] MEDS ORDERED: BISMUTH SUBSALICYLATE 262 MG/15 ML BTL PO PRN (11:54)
[2020-08-10] MEDS ORDERED: chlordiazePOXIDE HCL 25 MG CAPSULE PO PRN (11:54)
[2020-08-10] MEDS ORDERED: ONDANSETRON *ODT* 4 MG TABLET SL PRN (11:54)
[2020-08-10] MEDS: chlordiazePOXIDE HCL 25 MG CAPSULE PO SCH ×2 (12:33→18:37)
[2020-08-10] MEDS: PRENATAL VITAMINS W/ FOLIC ACID TABLET (FP) PO SCH (12:34)
[2020-08-10] MEDS: GABAPENTIN 400 MG CAPSULE PO SCH (12:34)
[2020-08-10 14:45] LABS: HEMATOCRIT 42.7 % (35.4-49); HEMOGLOBIN 13.9 GM/dL (11.7-16.9); MCH 30.5 pg (25.7-33.7); MCHC 32.6 g/dl (32.0-35.9); MEAN CELL VOLUME 93.6 fl (80-96); MEAN PLT VOLUME 7.8 fl (7.5-11.1); PLATELET COUNT 453 K/MM3 (134-434); RBC 4.56 M/mm3 (4.00-5.60); RDW 14.9 % (11.9-15.9); WHITE BLOOD COUNT 6.7 K/mm3 (4.0-10.0)
[2020-08-10] MEDS: hydrOXYzine PAMOATE 25 MG CAPSULE (FP) PO SCH ×2 (15:09→18:37)
[2020-08-10 15:15] LABS: POTASSIUM 3.2 mmol/L (3.5-5.1)
[2020-08-10 15:17] LABS: ALBUMIN 4.3 g/dl (3.4-5.0); BLOOD UREA NITROGEN 7.2 mg/dL (7-18); CALCIUM 9.5 mg/dL (8.5-10.1)
[2020-08-10 15:22] LABS: BILIRUBIN,TOTAL 0.7 mg/dL (0.2-1)
[2020-08-11] MEDS: hydrOXYzine PAMOATE 25 MG CAPSULE (FP) PO SCH ×6 (00:14→23:11)
[2020-08-11] MEDS: MELATONIN 5 MG TABLETS PO SCH ×2 (00:14→23:11)
[2020-08-11] MEDS: GABAPENTIN 400 MG CAPSULE PO SCH ×5 (00:14→23:11)
[2020-08-11] MEDS: chlordiazePOXIDE HCL 25 MG CAPSULE PO SCH ×5 (00:14→23:11)
[2020-08-11] MEDS: THIAMINE HCL 100 MG TABLET (FP) PO SCH ×2 (00:14→23:11)
[2020-08-11] MEDS ORDERED: PATIENT'S OWN MEDICATION (NON-FORMULARY) (Meloxicam [Meloxicam] 15 MG Tablet) PO SCH (10:00)
[2020-08-11] MEDS: LORATADINE 10 MG TABLET PO SCH (10:06)
[2020-08-11] MEDS: PRENATAL VITAMINS W/ FOLIC ACID TABLET (FP) PO SCH (10:06)
[2020-08-11] MEDS ORDERED: POTASSIUM CHLORIDE TABS 20 MEQ TABLET.ER (FP) PO ONE ×2 (11:28→17:00)
[2020-08-12] MEDS: METHOCARBAMOL 500 MG TABLET PO PRN ×2 (01:57→14:23)
[2020-08-12] MEDS: IBUPROFEN 400 MG TABLET (FP) PO PRN ×2 (01:57→14:22)
[2020-08-12] MEDS: chlordiazePOXIDE HCL 25 MG CAPSULE PO SCH ×4 (05:28→23:00)
[2020-08-12] MEDS: GABAPENTIN 400 MG CAPSULE PO SCH ×3 (05:29→23:00)
[2020-08-12] MEDS: hydrOXYzine PAMOATE 25 MG CAPSULE (FP) PO SCH ×5 (07:23→23:04)
[2020-08-12] MEDS: LORATADINE 10 MG TABLET PO SCH (10:32)
[2020-08-12] MEDS: PRENATAL VITAMINS W/ FOLIC ACID TABLET (FP) PO SCH (10:32)
[2020-08-12] MEDS: THIAMINE HCL 100 MG TABLET (FP) PO SCH (23:00)
[2020-08-12] MEDS: MELATONIN 5 MG TABLETS PO SCH (23:00)
[2020-08-13] MEDS ORDERED: chlordiazePOXIDE HCL 10 MG CAPSULE PO PRN
[2020-08-13] MEDS: chlordiazePOXIDE HCL 10 MG CAPSULE PO SCH ×2 (05:19→10:34)
[2020-08-13] MEDS: hydrOXYzine PAMOATE 25 MG CAPSULE (FP) PO SCH ×2 (05:20→10:35)
[2020-08-13] MEDS: GABAPENTIN 400 MG CAPSULE PO SCH (05:20)
[2020-08-13 09:56] VITALS: BP 118/78; PULSE 88; TEMP 98
[2020-08-13] MEDS: PRENATAL VITAMINS W/ FOLIC ACID TABLET (FP) PO SCH (10:34)
[2020-08-13] MEDS: LORATADINE 10 MG TABLET PO SCH (10:34)
[2020-08-14] MEDS ORDERED: chlordiazePOXIDE HCL 10 MG CAPSULE PO SCH (05:00)
[2020-08-15] MEDS ORDERED: chlordiazePOXIDE HCL 10 MG CAPSULE PO ONE (05:00)
== END 2020-08-13 12:15 | disposition home or self-care (01) | DRG 774 ==
LOC: YASAS 10:43 → Y6N 11:35
PROVIDERS: ADMIT Allergy & Immunology; ATTEND Allergy & Immunology
PROC: HZ2ZZZZ Detoxification Services for Substance Abuse Treatment (ICD-10-PCS; principal; 2020-08-10)
DX: F10.230 Alcohol dependence with withdrawal, uncomplicated (principal); F14.20 Cocaine dependence, uncomplicated; F17.210 Nicotine dependence, cigarettes, uncomplicated; F19.24 Other psychoactive substance dependence with psychoactive substance-induced mood disorder; E87.6 Hypokalemia; I10 Essential (primary) hypertension; J30.89 Other allergic rhinitis; E66.9 Obesity, unspecified; Z68.34 Body mass index [BMI] 34.0-34.9, adult; Z96.643 Presence of artificial hip joint, bilateral; Z99.89 Dependence on other enabling machines and devices; Z91.013 Allergy to seafood
CPT/HCPCS: 36415; 80053; 84132; 85027; 86780; C9803; U0003

== ENCOUNTER 2020-10-19 11:52 | Inpatient (IN) | payer OTHER ==
[2020-10-19 14:09] VITALS: BMI 34.0
[2020-10-19] MEDS ORDERED: IBUPROFEN 400 MG TABLET (FP) PO PRN (15:47)
[2020-10-19] MEDS ORDERED: MAGNESIUM HYDROX 2400MG/30ML ORAL SUSPENSION 30 ML CUP PO PRN (15:47)
[2020-10-19] MEDS ORDERED: MENTHOL/PHENOL 1 EACH UD MM PRN (15:47)
[2020-10-19] MEDS ORDERED: MAG HYDROX/AL HYDROX/SIMETH 30 ML UNIT-DOSE CUP PO PRN (15:47)
[2020-10-19] MEDS ORDERED: ONDANSETRON *ODT* 4 MG TABLET SL PRN (15:47)
[2020-10-19] MEDS ORDERED: METHOCARBAMOL 500 MG TABLET PO PRN (15:47)
[2020-10-19] MEDS ORDERED: P-EPHED 60MG/TRIPROLIDI 2.5MG TABLET PO PRN (15:47)
[2020-10-19] MEDS ORDERED: ACETAMINOPHEN 325 MG TABLET (FP) PO PRN ×2 (15:47)
[2020-10-19] MEDS ORDERED: MAGNESIUM CITRATE 300 ML BOTTLE PO PRN (15:47)
[2020-10-19] MEDS ORDERED: BISMUTH SUBSALICYLATE 524 MG/30 ML UD PO PRN (15:47)
[2020-10-19] MEDS ORDERED: diazePAM 5 MG TABLET PO PRN (15:50)
[2020-10-19] MEDS ORDERED: MASKS NR ONE (18:59)
[2020-10-19] MEDS: hydrOXYzine PAMOATE 25 MG CAPSULE (FP) PO SCH ×2 (19:01→22:33)
[2020-10-19] MEDS: diazePAM 5 MG TABLET PO SCH ×2 (19:01→22:33)
[2020-10-19] MEDS: GABAPENTIN 100 MG CAPSULE PO SCH (22:33)
[2020-10-19] MEDS: MELATONIN 5 MG TABLETS PO SCH (22:33)
[2020-10-19] MEDS: THIAMINE HCL 100 MG TABLET (FP) PO SCH (22:33)
[2020-10-20] MEDS: GABAPENTIN 100 MG CAPSULE PO SCH ×3 (06:56→23:09)
[2020-10-20] MEDS: hydrOXYzine PAMOATE 25 MG CAPSULE (FP) PO SCH ×5 (06:56→23:09)
[2020-10-20] MEDS: diazePAM 5 MG TABLET PO SCH ×4 (06:59→23:10)
[2020-10-20] MEDS: PRENATAL VITAMINS W/ FOLIC ACID TABLET (FP) PO SCH (11:12)
[2020-10-20 12:19] LABS: HEMOGLOBIN 13.6 GM/dL (11.7-16.9); MCH 32.4 pg (25.7-33.7); MCHC 33.9 g/dl (32.0-35.9); MEAN CELL VOLUME 95.5 fl (80-96); PLATELET COUNT 426 K/MM3 (134-434); RBC 4.18 M/mm3 (4.00-5.60); RDW 14.4 % (11.9-15.9); WHITE BLOOD COUNT 5.3 K/mm3 (4.0-10.0)
[2020-10-20 12:21] LABS: ALBUMIN 3.6 g/dl (3.4-5.0); CALCIUM 9.2 mg/dL (8.5-10.1)
[2020-10-20 12:22] LABS: BLOOD UREA NITROGEN 9.3 mg/dL (7-18)
[2020-10-20 12:24] LABS: CREATININE 1.1 mg/dL (0.55-1.3)
[2020-10-20] MEDS: THIAMINE HCL 100 MG TABLET (FP) PO SCH (23:10)
[2020-10-20] MEDS: MELATONIN 5 MG TABLETS PO SCH (23:10)
[2020-10-21] MEDS: diazePAM 5 MG TABLET PO SCH ×3 (06:06→22:14)
[2020-10-21] MEDS: GABAPENTIN 100 MG CAPSULE PO SCH ×3 (06:06→22:14)
[2020-10-21] MEDS: hydrOXYzine PAMOATE 25 MG CAPSULE (FP) PO SCH ×5 (06:07→22:15)
[2020-10-21] MEDS: PRENATAL VITAMINS W/ FOLIC ACID TABLET (FP) PO SCH (10:46)
[2020-10-21] MEDS: THIAMINE HCL 100 MG TABLET (FP) PO SCH (22:14)
[2020-10-21] MEDS: MELATONIN 5 MG TABLETS PO SCH (22:17)
[2020-10-22] MEDS: GABAPENTIN 100 MG CAPSULE PO SCH ×3 (06:38→23:08)
[2020-10-22] MEDS: diazePAM 5 MG TABLET PO SCH ×2 (06:38→17:46)
[2020-10-22] MEDS: hydrOXYzine PAMOATE 25 MG CAPSULE (FP) PO SCH ×5 (06:38→23:08)
[2020-10-22] MEDS: PRENATAL VITAMINS W/ FOLIC ACID TABLET (FP) PO SCH (10:12)
[2020-10-22] MEDS: THIAMINE HCL 100 MG TABLET (FP) PO SCH (23:08)
[2020-10-22] MEDS: MELATONIN 5 MG TABLETS PO SCH (23:08)
[2020-10-23] MEDS ORDERED: diazePAM 5 MG TABLET PO ONE (06:00)
[2020-10-23] MEDS: GABAPENTIN 100 MG CAPSULE PO SCH (06:28)
[2020-10-23] MEDS: hydrOXYzine PAMOATE 25 MG CAPSULE (FP) PO SCH ×3 (06:28→13:33)
[2020-10-23 09:16] VITALS: BP 142/84; PULSE 105; TEMP 98.7
[2020-10-23] MEDS: PRENATAL VITAMINS W/ FOLIC ACID TABLET (FP) PO SCH (10:18)
[2020-10-23 13:01] LABS: SARS-CoV-2 NAA Not Detected
== END 2020-10-23 14:32 | disposition home or self-care (01) | DRG 774 ==
LOC: YASAS 11:52 → Y6N 15:59
PROVIDERS: ADMIT Allergy & Immunology; ATTEND Allergy & Immunology
PROC: HZ2ZZZZ Detoxification Services for Substance Abuse Treatment (ICD-10-PCS; principal; 2020-10-19)
DX: F10.230 Alcohol dependence with withdrawal, uncomplicated (principal); F14.20 Cocaine dependence, uncomplicated; F17.210 Nicotine dependence, cigarettes, uncomplicated; F19.24 Other psychoactive substance dependence with psychoactive substance-induced mood disorder; I10 Essential (primary) hypertension; R73.9 Hyperglycemia, unspecified; Z96.643 Presence of artificial hip joint, bilateral; Z99.89 Dependence on other enabling machines and devices; Z91.013 Allergy to seafood
CPT/HCPCS: 36415; 80053; 82947; 85027; 86780; 93005; 93010; C9803; U0003; U0005

== ENCOUNTER 2021-01-07 11:49 | Inpatient (IN) | payer OTHER ==
[2021-01-07 13:38] VITALS: BMI 35.2
[2021-01-07] MEDS ORDERED: diazePAM 5 MG TABLET PO PRN (13:56)
[2021-01-07] MEDS ORDERED: MAGNESIUM CITRATE 300 ML BOTTLE PO PRN (13:56)
[2021-01-07] MEDS ORDERED: MAG HYDROX/AL HYDROX/SIMETH 30 ML UNIT-DOSE CUP PO PRN (13:56)
[2021-01-07] MEDS ORDERED: BISMUTH SUBSALICYLATE 262 MG/15 ML BTL PO PRN (13:56)
[2021-01-07] MEDS ORDERED: NICOTINE 10 MG CARTRIDGE (INHALER) IH PRN (13:56)
[2021-01-07] MEDS ORDERED: ONDANSETRON *ODT* 4 MG TABLET SL PRN (13:56)
[2021-01-07] MEDS ORDERED: IBUPROFEN 400 MG TABLET (FP) PO PRN (13:56)
[2021-01-07] MEDS ORDERED: ACETAMINOPHEN 325 MG TABLET (FP) PO PRN ×2 (13:56)
[2021-01-07] MEDS ORDERED: MENTHOL/PHENOL 1 EACH UD MM PRN (13:56)
[2021-01-07] MEDS ORDERED: MAGNESIUM HYDROX 2400MG/30ML ORAL SUSPENSION 30 ML CUP PO PRN (13:56)
[2021-01-07] MEDS: PRENATAL VITAMINS W/ FOLIC ACID TABLET (FP) PO SCH (16:08)
[2021-01-07] MEDS: hydrOXYzine PAMOATE 25 MG CAPSULE (FP) PO SCH ×3 (16:08→23:09)
[2021-01-07] MEDS: diazePAM 5 MG TABLET PO SCH ×2 (18:27→23:09)
[2021-01-07] MEDS: MELATONIN 5 MG TABLETS PO SCH (23:08)
[2021-01-07] MEDS: THIAMINE HCL 100 MG TABLET (FP) PO SCH (23:09)
[2021-01-08] MEDS: hydrOXYzine PAMOATE 25 MG CAPSULE (FP) PO SCH (06:15)
[2021-01-08] MEDS: diazePAM 5 MG TABLET PO SCH ×4 (06:15→22:48)
[2021-01-08] MEDS ORDERED: PATIENT'S OWN MEDICATION (NON-FORMULARY) (Meloxicam [Meloxicam] 15 MG Tablet) PO SCH (10:00)
[2021-01-08] MEDS: PRENATAL VITAMINS W/ FOLIC ACID TABLET (FP) PO SCH (10:05)
[2021-01-08] MEDS ORDERED: IBUPROFEN 400 MG TABLET (FP) PO PRN (10:11)
[2021-01-08 10:21] LABS: HEMATOCRIT 40.7 % (35.4-49); HEMOGLOBIN 13.8 GM/dL (11.7-16.9); MCHC 33.9 g/dl (32.0-35.9); MEAN CELL VOLUME 97.3 fl (80-96); MEAN PLT VOLUME 8.6 fl (7.5-11.1); PLATELET COUNT 315 10^3/uL (134-434); RBC 4.18 M/mm3 (4.00-5.60); RDW 13.3 % (11.9-15.9); WHITE BLOOD COUNT 3.3 K/mm3 (4.0-10.0)
[2021-01-08 10:32] LABS: CALCIUM 8.5 mg/dL (8.5-10.1)
[2021-01-08 10:33] LABS: ALBUMIN 3.3 g/dl (3.4-5.0); BLOOD UREA NITROGEN 12.2 mg/dL (7-18)
[2021-01-08 10:36] LABS: CREATININE 0.9 mg/dL (0.55-1.3)
[2021-01-08 10:37] LABS: BILIRUBIN,TOTAL 1.2 mg/dL (0.2-1); TOT PROT 6.2 g/dl (6.4-8.2)
[2021-01-08 11:19] LABS: HIV INTERPRETATION NEGATIVE (NEGATIVE)
[2021-01-08] MEDS: METHOCARBAMOL 500 MG TABLET PO PRN (18:10)
[2021-01-08] MEDS: hydrOXYzine PAMOATE 25 MG CAPSULE (FP) PO PRN (18:10)
[2021-01-08] MEDS: THIAMINE HCL 100 MG TABLET (FP) PO SCH (22:47)
[2021-01-08] MEDS: MELATONIN 5 MG TABLETS PO SCH (22:48)
[2021-01-09] MEDS: diazePAM 5 MG TABLET PO SCH ×3 (06:47→22:32)
[2021-01-09] MEDS: PRENATAL VITAMINS W/ FOLIC ACID TABLET (FP) PO SCH (10:15)
[2021-01-09] MEDS ORDERED: LIDOCAINE 5% TOPICAL PATCH TP ONE (12:24)
[2021-01-09] MEDS: LIDOCAINE PATCH REMOVAL MC SCH (22:29)
[2021-01-09] MEDS: THIAMINE HCL 100 MG TABLET (FP) PO SCH (22:32)
[2021-01-09] MEDS: MELATONIN 5 MG TABLETS PO SCH (22:32)
[2021-01-09] MEDS: METHOCARBAMOL 500 MG TABLET PO PRN (22:32)
[2021-01-09] MEDS: hydrOXYzine PAMOATE 25 MG CAPSULE (FP) PO PRN (22:32)
[2021-01-10] MEDS: diazePAM 5 MG TABLET PO SCH ×2 (07:19→18:55)
[2021-01-10] MEDS: LIDOCAINE 5% TOPICAL PATCH TP SCH (10:49)
[2021-01-10] MEDS: PRENATAL VITAMINS W/ FOLIC ACID TABLET (FP) PO SCH (10:49)
[2021-01-10] MEDS: LIDOCAINE PATCH REMOVAL MC SCH (23:53)
[2021-01-10] MEDS: MELATONIN 5 MG TABLETS PO SCH (23:53)
[2021-01-10] MEDS: THIAMINE HCL 100 MG TABLET (FP) PO SCH (23:54)
[2021-01-11] MEDS ORDERED: diazePAM 5 MG TABLET PO ONE (06:00)
[2021-01-11] MEDS: PRENATAL VITAMINS W/ FOLIC ACID TABLET (FP) PO SCH (10:13)
[2021-01-11] MEDS: LIDOCAINE 5% TOPICAL PATCH TP SCH (10:13)
[2021-01-11 11:15] VITALS: BP 113/76; PULSE 83; TEMP 98.6
== END 2021-01-11 12:59 | disposition other institution (70) | DRG 774 ==
LOC: YASAS 11:49 → Y3N 15:01
PROVIDERS: ADMIT Allergy & Immunology; ATTEND Allergy & Immunology
PROC: HZ2ZZZZ Detoxification Services for Substance Abuse Treatment (ICD-10-PCS; principal; 2021-01-07)
DX: F10.230 Alcohol dependence with withdrawal, uncomplicated (principal); F14.20 Cocaine dependence, uncomplicated; F17.210 Nicotine dependence, cigarettes, uncomplicated; F19.24 Other psychoactive substance dependence with psychoactive substance-induced mood disorder; I10 Essential (primary) hypertension; M19.90 Unspecified osteoarthritis, unspecified site; R00.0 Tachycardia, unspecified; E66.9 Obesity, unspecified; Z68.35 Body mass index [BMI] 35.0-35.9, adult; R26.2 Difficulty in walking, not elsewhere classified; Z87.438 Personal history of other diseases of male genital organs; Z96.643 Presence of artificial hip joint, bilateral; Z91.013 Allergy to seafood; Z59.0 Homelessness
CPT/HCPCS: 36415; 80053; 85027; 86780; 87389; C9803; U0003; U0005

== ENCOUNTER 2021-01-11 13:17 | Inpatient (IN) | payer OTHER ==
[2021-01-11] MEDS ORDERED: MAGNESIUM CITRATE 300 ML BOTTLE PO PRN (15:39)
[2021-01-11] MEDS ORDERED: P-EPHED 60MG/TRIPROLIDI 2.5MG TABLET PO PRN (15:39)
[2021-01-11] MEDS ORDERED: MENTHOL/PHENOL 1 EACH UD MM PRN (15:39)
[2021-01-11] MEDS ORDERED: guaiFENesin 200 MG/10 ML 10 ML UNIT-DOSE CUPS PO PRN (15:39)
[2021-01-11] MEDS ORDERED: LOPERAMIDE HCL 2 MG CAPSULE PO PRN (15:39)
[2021-01-11] MEDS ORDERED: MAGNESIUM HYDROX 2400MG/30ML ORAL SUSPENSION 30 ML CUP PO PRN (15:39)
[2021-01-11] MEDS ORDERED: MAG HYDROX/AL HYDROX/SIMETH 30 ML UNIT-DOSE CUP PO PRN (15:39)
[2021-01-11] MEDS ORDERED: ACETAMINOPHEN 325 MG TABLET (FP) PO PRN (15:39)
[2021-01-11] MEDS: METHOCARBAMOL 500 MG TABLET PO PRN (17:27)
[2021-01-11] MEDS: THIAMINE HCL 100 MG TABLET (FP) PO SCH (22:01)
[2021-01-11] MEDS: MELATONIN 5 MG TABLETS PO SCH (22:01)
[2021-01-12] MEDS: hydrOXYzine PAMOATE 25 MG CAPSULE (FP) PO PRN ×2 (02:55→21:42)
[2021-01-12] MEDS: LORATADINE 10 MG TABLET PO SCH (11:17)
[2021-01-12] MEDS: NICOTINE 7 MG/24 HOURS TOPICAL PATCH TD SCH (11:17)
[2021-01-12] MEDS: PRENATAL VITAMINS W/ FOLIC ACID TABLET (FP) PO SCH (11:17)
[2021-01-12] MEDS: NICOTINE 10 MG CARTRIDGE (INHALER) IH PRN (18:38)
[2021-01-12] MEDS: THIAMINE HCL 100 MG TABLET (FP) PO SCH (21:41)
[2021-01-12] MEDS: MELATONIN 5 MG TABLETS PO SCH (21:41)
[2021-01-13] MEDS: PRENATAL VITAMINS W/ FOLIC ACID TABLET (FP) PO SCH (09:53)
[2021-01-13] MEDS: LORATADINE 10 MG TABLET PO SCH (09:53)
[2021-01-13] MEDS: NICOTINE 7 MG/24 HOURS TOPICAL PATCH TD SCH (09:53)
[2021-01-13] MEDS: NICOTINE 10 MG CARTRIDGE (INHALER) IH PRN ×2 (12:42→17:50)
[2021-01-13] MEDS: IBUPROFEN 400 MG TABLET (FP) PO PRN ×2 (14:15→21:33)
[2021-01-13] MEDS: METHOCARBAMOL 500 MG TABLET PO PRN ×2 (14:15→21:33)
[2021-01-13] MEDS: MELATONIN 5 MG TABLETS PO SCH (21:31)
[2021-01-13] MEDS: THIAMINE HCL 100 MG TABLET (FP) PO SCH (21:31)
[2021-01-14 07:09] VITALS: BP 120/77; PULSE 88; TEMP 97.6
[2021-01-14] MEDS: LORATADINE 10 MG TABLET PO SCH (10:16)
[2021-01-14] MEDS: METHOCARBAMOL 500 MG TABLET PO PRN (10:16)
[2021-01-14] MEDS: IBUPROFEN 400 MG TABLET (FP) PO PRN (10:16)
[2021-01-14] MEDS: PRENATAL VITAMINS W/ FOLIC ACID TABLET (FP) PO SCH (10:16)
[2021-01-14] MEDS: NICOTINE 7 MG/24 HOURS TOPICAL PATCH TD SCH (10:42)
== END 2021-01-14 13:50 | disposition left against medical advice (07) | DRG 770 ==
LOC: YASAS 13:17 → Y5N 13:18
PROVIDERS: ADMIT Allergy & Immunology; ATTEND Allergy & Immunology
PROC: HZ42ZZZ Group Counseling for Substance Abuse Treatment, Cognitive-Behavioral (ICD-10-PCS; principal; 2021-01-11)
DX: F10.20 Alcohol dependence, uncomplicated (principal); F14.20 Cocaine dependence, uncomplicated; F17.210 Nicotine dependence, cigarettes, uncomplicated; I10 Essential (primary) hypertension; E66.9 Obesity, unspecified; Z68.34 Body mass index [BMI] 34.0-34.9, adult; R26.2 Difficulty in walking, not elsewhere classified; Z99.89 Dependence on other enabling machines and devices

== ENCOUNTER 2021-09-10 19:22 | Inpatient (IN) | payer OTHER ==
[2021-09-10 20:02] VITALS: BMI 31.0
[2021-09-10] MEDS ORDERED: LOPERAMIDE HCL 2 MG CAPSULE PO PRN (23:55)
[2021-09-10] MEDS ORDERED: ONDANSETRON *ODT* 4 MG TABLET SL PRN (23:55)
[2021-09-10] MEDS ORDERED: MENTHOL/PHENOL 1 EACH UD MM PRN (23:55)
[2021-09-10] MEDS ORDERED: MAG HYDROX/AL HYDROX/SIMETH 30 ML UNIT-DOSE CUP PO PRN (23:55)
[2021-09-10] MEDS ORDERED: BISMUTH SUBSALICYLATE 524 MG/30 ML PO PRN (23:55)
[2021-09-10] MEDS ORDERED: IBUPROFEN 400 MG TABLET (FP) PO PRN (23:55)
[2021-09-10] MEDS ORDERED: MAGNESIUM HYDROX 2400MG/30ML ORAL SUSPENSION 30 ML CUP PO PRN (23:55)
[2021-09-10] MEDS ORDERED: MAGNESIUM CITRATE 300 ML BOTTLE PO PRN (23:55)
[2021-09-10] MEDS ORDERED: DICYCLOMINE HCL 10 MG CAPSULE PO PRN (23:55)
[2021-09-10] MEDS ORDERED: ACETAMINOPHEN 325 MG TABLET (FP) PO PRN ×2 (23:55)
[2021-09-11 10:01] LABS: HEMATOCRIT 43.2 % (35.4-49); HEMOGLOBIN 14.4 GM/dL (11.7-16.9); MCH 32.9 pg (25.7-33.7); MCHC 33.4 g/dl (32.0-35.9); MEAN CELL VOLUME 98.5 fl (80-96); MEAN PLT VOLUME 7.5 fl (7.5-11.1); PLATELET COUNT 409 10^3/uL (134-434); RBC 4.38 M/mm3 (4.00-5.60); RDW 13.5 % (11.9-15.9); WHITE BLOOD COUNT 6.4 K/mm3 (4.0-10.0)
[2021-09-11 10:15] LABS: CALCIUM 9.1 mg/dL (8.5-10.1)
[2021-09-11 10:16] LABS: ALBUMIN 3.6 g/dl (3.4-5.0); BLOOD UREA NITROGEN 12.8 mg/dL (7-18)
[2021-09-11 10:19] LABS: CREATININE 1.1 mg/dL (0.55-1.3); TOT PROT 6.9 g/dl (6.4-8.2)
[2021-09-11 10:21] LABS: BILIRUBIN,TOTAL 0.6 mg/dL (0.2-1)
[2021-09-11] MEDS: PRENATAL VITAMINS W/ FOLIC ACID TABLET (FP) PO SCH (10:22)
[2021-09-11] MEDS: NICOTINE 14 MG/24 HOURS TOPICAL PATCH TD SCH (10:23)
[2021-09-11] MEDS: diazePAM 5 MG TABLET PO SCH ×3 (10:56→22:44)
[2021-09-11] MEDS: NICOTINE 10 MG CARTRIDGE (INHALER) IH PRN (11:15)
[2021-09-11] MEDS: MELATONIN 5 MG TABLETS PO SCH (22:44)
[2021-09-11] MEDS: THIAMINE HCL 100 MG TABLET (FP) PO SCH (22:44)
[2021-09-11] MEDS: METHOCARBAMOL 500 MG TABLET PO PRN (22:44)
[2021-09-12] MEDS: diazePAM 5 MG TABLET PO SCH ×4 (05:44→22:49)
[2021-09-12] MEDS: PRENATAL VITAMINS W/ FOLIC ACID TABLET (FP) PO SCH (10:21)
[2021-09-12] MEDS: NICOTINE 14 MG/24 HOURS TOPICAL PATCH TD SCH (10:23)
[2021-09-12 14:08] LABS: SARS-CoV-2 NAA Not Detected (Not Detected)
[2021-09-12] MEDS: diazePAM 5 MG TABLET PO PRN (19:51)
[2021-09-12] MEDS: METHOCARBAMOL 500 MG TABLET PO PRN (22:49)
[2021-09-12] MEDS: MELATONIN 5 MG TABLETS PO SCH (22:49)
[2021-09-12] MEDS: THIAMINE HCL 100 MG TABLET (FP) PO SCH (22:49)
[2021-09-13] MEDS: diazePAM 5 MG TABLET PO SCH ×3 (06:01→22:52)
[2021-09-13] MEDS: diazePAM 5 MG TABLET PO PRN ×2 (10:03→18:36)
[2021-09-13] MEDS: PRENATAL VITAMINS W/ FOLIC ACID TABLET (FP) PO SCH (10:03)
[2021-09-13] MEDS: NICOTINE 14 MG/24 HOURS TOPICAL PATCH TD SCH (10:07)
[2021-09-13] MEDS: NICOTINE 10 MG CARTRIDGE (INHALER) IH PRN ×2 (10:57→18:35)
[2021-09-13] MEDS: LORATADINE 10 MG TABLET PO SCH (10:57)
[2021-09-13] MEDS: MELATONIN 5 MG TABLETS PO SCH (22:51)
[2021-09-13] MEDS: THIAMINE HCL 100 MG TABLET (FP) PO SCH (22:51)
[2021-09-14] MEDS: diazePAM 5 MG TABLET PO SCH ×2 (06:29→17:59)
[2021-09-14] MEDS: LORATADINE 10 MG TABLET PO SCH (09:25)
[2021-09-14] MEDS: PRENATAL VITAMINS W/ FOLIC ACID TABLET (FP) PO SCH (09:25)
[2021-09-14] MEDS: diazePAM 5 MG TABLET PO PRN (09:26)
[2021-09-14] MEDS: NICOTINE 14 MG/24 HOURS TOPICAL PATCH TD SCH (09:26)
[2021-09-14] MEDS: MELATONIN 5 MG TABLETS PO SCH (23:18)
[2021-09-14] MEDS: THIAMINE HCL 100 MG TABLET (FP) PO SCH (23:18)
[2021-09-15] MEDS: NICOTINE 10 MG CARTRIDGE (INHALER) IH PRN (06:00)
[2021-09-15] MEDS ORDERED: diazePAM 5 MG TABLET PO ONE (06:00)
[2021-09-15 07:07] VITALS: BP 138/99; PULSE 77; TEMP 97.4
== END 2021-09-15 09:30 | disposition home or self-care (01) | DRG 774 ==
LOC: YASAS 19:22 → Y3N 09-11 02:21
PROVIDERS: ADMIT Allergy & Immunology; ATTEND Allergy & Immunology
PROC: HZ2ZZZZ Detoxification Services for Substance Abuse Treatment (ICD-10-PCS; principal; 2021-09-11)
DX: F10.230 Alcohol dependence with withdrawal, uncomplicated (principal); F14.20 Cocaine dependence, uncomplicated; F12.20 Cannabis dependence, uncomplicated; F17.210 Nicotine dependence, cigarettes, uncomplicated; I10 Essential (primary) hypertension; J30.2 Other seasonal allergic rhinitis; M16.0 Bilateral primary osteoarthritis of hip; E66.9 Obesity, unspecified; Z68.31 Body mass index [BMI] 31.0-31.9, adult; Z99.89 Dependence on other enabling machines and devices; Z91.013 Allergy to seafood
CPT/HCPCS: 36415; 80053; 85027; 86780; 87811; C9803-CS; U0003; U0005

== ENCOUNTER 2022-08-23 11:31 | Inpatient (IN) | payer OTHER ==
[2022-08-23 12:07] VITALS: BMI 31.4
[2022-08-23] MEDS ORDERED: NALOXONE HCL (KLOXXADO) 8 MG SPRAY NS PRN (12:38)
[2022-08-23] MEDS ORDERED: MAGNESIUM HYDROX 2400MG/30ML ORAL SUSPENSION 30 ML CUP PO PRN (12:38)
[2022-08-23] MEDS ORDERED: BENZOCAINE/MENTHOL (CHLORASEPTIC ) LOZENGE MM PRN (12:38)
[2022-08-23] MEDS ORDERED: BENZONATATE 200 MG CAPSULE PO PRN (12:38)
[2022-08-23] MEDS ORDERED: ACETAMINOPHEN 325 MG TABLET (FP) PO PRN (12:38)
[2022-08-23] MEDS ORDERED: ONDANSETRON *ODT* 4 MG TABLET SL PRN (12:38)
[2022-08-23] MEDS ORDERED: guaiFENesin 600 MG TABLET.ER (FP) PO PRN (12:38)
[2022-08-23] MEDS ORDERED: LOPERAMIDE HCL 2 MG CAPSULE PO PRN (12:38)
[2022-08-23] MEDS ORDERED: DICYCLOMINE HCL 10 MG CAPSULE PO PRN (12:38)
[2022-08-23] MEDS ORDERED: NALOXONE HCL 0.4 MG/ML VIAL IM PRN (12:38)
[2022-08-23] MEDS ORDERED: BISMUTH SUBSALICYLATE 524 MG/30 ML PO PRN (12:38)
[2022-08-23] MEDS ORDERED: IBUPROFEN 600 MG TABLET (FP) PO PRN (12:38)
[2022-08-23] MEDS ORDERED: MAG HYDROX/AL HYDROX/SIMETH 30 ML UNIT-DOSE CUP PO PRN (12:38)
[2022-08-23] MEDS ORDERED: IBUPROFEN 400 MG TABLET (FP) PO PRN (12:38)
[2022-08-23] MEDS ORDERED: POLYETHYLENE GLYCOL (HEALTHYLAX) 3350 17 GM PACKET PO PRN (12:38)
[2022-08-23] MEDS: NICOTINE 10 MG CARTRIDGE (INHALER) IH PRN ×2 (14:38→20:42)
[2022-08-23] MEDS: THIAMINE HCL 100 MG TABLET (FP) PO SCH (22:41)
[2022-08-23] MEDS: hydrOXYzine PAMOATE 25 MG CAPSULE (FP) PO PRN (22:41)
[2022-08-23] MEDS: METHOCARBAMOL 500 MG TABLET PO PRN (22:41)
[2022-08-23] MEDS: MELATONIN 5 MG TABLETS PO SCH (22:41)
[2022-08-23] MEDS ORDERED: LORATADINE 10 MG TABLET PO ONE (23:04)
[2022-08-24] MEDS: PRENATAL VITAMINS W/ FOLIC ACID TABLET (FP) PO SCH (10:34)
[2022-08-24] MEDS: hydrOXYzine PAMOATE 25 MG CAPSULE (FP) PO PRN (10:35)
[2022-08-24] MEDS: LORATADINE 10 MG TABLET PO SCH (10:35)
[2022-08-24] MEDS: METHOCARBAMOL 500 MG TABLET PO PRN ×2 (10:35→22:48)
[2022-08-24 10:54] LABS: HEMATOCRIT 40.7 % (35.4-49); HEMOGLOBIN 13.7 GM/dL (11.7-16.9); MCH 32.1 pg (25.7-33.7); MCHC 33.5 g/dl (32.0-35.9); MEAN CELL VOLUME 95.7 fl (80-96); MEAN PLT VOLUME 7.7 fl (7.5-11.1); PLATELET COUNT 353 10^3/uL (134-434); RBC 4.25 M/mm3 (4.00-5.60); RDW 13.6 % (11.9-15.9); WHITE BLOOD COUNT 4.5 K/mm3 (4.0-10.0)
[2022-08-24 11:10] LABS: CALCIUM 9.2 mg/dL (8.5-10.1)
[2022-08-24 11:11] LABS: ALBUMIN 3.2 g/dl (3.4-5.0); BLOOD UREA NITROGEN 6.7 mg/dL (7-18)
[2022-08-24 11:15] LABS: BILIRUBIN,TOTAL 0.8 mg/dL (0.2-1); TOT PROT 6.1 g/dl (6.4-8.2)
[2022-08-24] MEDS: NICOTINE 10 MG CARTRIDGE (INHALER) IH PRN (14:40)
[2022-08-24] MEDS ORDERED: LORazepam 1 MG TABLET PO PRN (16:02)
[2022-08-24] MEDS: LORazepam 1 MG TABLET PO SCH ×2 (17:46→22:48)
[2022-08-24] MEDS: MELATONIN 5 MG TABLETS PO SCH (22:48)
[2022-08-24] MEDS: THIAMINE HCL 100 MG TABLET (FP) PO SCH (22:48)
[2022-08-25] MEDS: LORazepam 1 MG TABLET PO SCH ×4 (05:53→22:11)
[2022-08-25] MEDS: METHOCARBAMOL 500 MG TABLET PO PRN (10:47)
[2022-08-25] MEDS: PRENATAL VITAMINS W/ FOLIC ACID TABLET (FP) PO SCH (10:47)
[2022-08-25] MEDS: hydrOXYzine PAMOATE 25 MG CAPSULE (FP) PO PRN (10:47)
[2022-08-25] MEDS: LORATADINE 10 MG TABLET PO SCH (10:47)
[2022-08-25] MEDS: MELATONIN 5 MG TABLETS PO SCH (22:12)
[2022-08-25] MEDS: THIAMINE HCL 100 MG TABLET (FP) PO SCH (22:12)
[2022-08-26] MEDS ORDERED: LORazepam 0.5 MG TABLET PO PRN
[2022-08-26] MEDS: LORazepam 0.5 MG TABLET PO SCH ×4 (05:39→22:32)
[2022-08-26] MEDS: METHOCARBAMOL 500 MG TABLET PO PRN (10:45)
[2022-08-26] MEDS: PRENATAL VITAMINS W/ FOLIC ACID TABLET (FP) PO SCH (10:45)
[2022-08-26] MEDS: LORATADINE 10 MG TABLET PO SCH (10:46)
[2022-08-26] MEDS: hydrOXYzine PAMOATE 25 MG CAPSULE (FP) PO PRN (10:46)
[2022-08-26] MEDS: THIAMINE HCL 100 MG TABLET (FP) PO SCH (22:32)
[2022-08-26] MEDS: MELATONIN 5 MG TABLETS PO SCH (22:34)
[2022-08-27] MEDS ORDERED: LORazepam 0.5 MG TABLET PO ONE (05:00)
[2022-08-27 06:35] VITALS: BP 137/74; PULSE 93; RESP 18; TEMP 98.9
[2022-08-27] MEDS: PRENATAL VITAMINS W/ FOLIC ACID TABLET (FP) PO SCH (10:51)
[2022-08-27] MEDS: LORATADINE 10 MG TABLET PO SCH (10:51)
== END 2022-08-27 12:00 | disposition home or self-care (01) | DRG 774 ==
LOC: YASAS 11:31 → Y6N 13:00
PROVIDERS: ADMIT Allergy & Immunology; ATTEND Surgery
PROC: HZ2ZZZZ Detoxification Services for Substance Abuse Treatment (ICD-10-PCS; principal; 2022-08-23)
DX: F10.230 Alcohol dependence with withdrawal, uncomplicated (principal); F14.20 Cocaine dependence, uncomplicated; F17.210 Nicotine dependence, cigarettes, uncomplicated; I10 Essential (primary) hypertension; J30.2 Other seasonal allergic rhinitis; M16.0 Bilateral primary osteoarthritis of hip; E66.9 Obesity, unspecified; Z68.31 Body mass index [BMI] 31.0-31.9, adult; Z99.89 Dependence on other enabling machines and devices; Z28.310 Unvaccinated for COVID-19; Z28.9 Immunization not carried out for unspecified reason
CPT/HCPCS: 36415; 80053; 85027; 86780; 87811; C9803-CS; U0003; U0005

== ENCOUNTER 2024-01-22 11:07 | Inpatient (IN) | payer OTHER ==
[2024-01-22 11:29] VITALS: BMI 29.2
[2024-01-22] MEDS ORDERED: ACETAMINOPHEN 325 MG TABLET (FP) PO PRN (12:38)
[2024-01-22] MEDS ORDERED: IBUPROFEN 600 MG TABLET (FP) PO PRN (12:38)
[2024-01-22] MEDS ORDERED: BENZONATATE 200 MG CAPSULE PO PRN (12:38)
[2024-01-22] MEDS ORDERED: NALOXONE (NARCAN) HCL 4 MG/0.1 ML SPRAY NS PRN (12:38)
[2024-01-22] MEDS ORDERED: guaiFENesin 600 MG TABLET.ER (FP) PO PRN (12:38)
[2024-01-22] MEDS ORDERED: MAG HYDROX/AL HYDROX/SIMETH 30 ML UNIT-DOSE CUP PO PRN (12:38)
[2024-01-22] MEDS ORDERED: MAGNESIUM HYDROX 2400MG/30ML ORAL SUSPENSION 30 ML CUP PO PRN (12:38)
[2024-01-22] MEDS ORDERED: NALOXONE HCL 0.4 MG/ML VIAL IM PRN (12:38)
[2024-01-22] MEDS ORDERED: POLYETHYLENE GLYCOL (HEALTHYLAX) 3350 17 GM PACKET PO PRN (12:38)
[2024-01-22] MEDS ORDERED: DICYCLOMINE HCL 10 MG CAPSULE PO PRN (12:38)
[2024-01-22] MEDS ORDERED: IBUPROFEN 400 MG TABLET (FP) PO PRN (12:38)
[2024-01-22] MEDS ORDERED: BENZOCAINE/MENTHOL (CHLORASEPTIC ) LOZENGE MM PRN (12:38)
[2024-01-22] MEDS ORDERED: BISMUTH SUBSALICYLATE 262 MG/15 ML BTL PO PRN (12:38)
[2024-01-22] MEDS ORDERED: ONDANSETRON *ODT* 4 MG TABLET SL PRN (12:38)
[2024-01-22] MEDS: NICOTINE POLACRILEX 2 MG GUM BUC PRN (20:56)
[2024-01-22] MEDS: MELATONIN 5 MG TABLETS PO SCH (22:35)
[2024-01-22] MEDS: THIAMINE 100 MG TABLET PO SCH (22:35)
[2024-01-22] MEDS: METHOCARBAMOL 500 MG TABLET PO PRN (22:35)
[2024-01-23 09:19] LABS: HEMATOCRIT 38.2 % (35.4-49); HEMOGLOBIN 12.8 GM/dL (11.7-16.9); MCH 32.6 pg (25.7-33.7); MCHC 33.5 g/dl (32.0-35.9); MEAN CELL VOLUME 97.4 fl (80-96); MEAN PLT VOLUME 8.4 fl (7.5-11.1); PLATELET COUNT 283 10^3/uL (134-434); RBC 3.92 M/mm3 (4.00-5.60); RDW 13.1 % (11.9-15.9); WHITE BLOOD COUNT 4.7 K/mm3 (4.0-10.0)
[2024-01-23] MEDS: PRENATAL VITAMINS W/ FOLIC ACID TABLET (FP) PO SCH (09:22)
[2024-01-23] MEDS: LOPERAMIDE HCL 2 MG CAPSULE PO PRN (09:22)
[2024-01-23] MEDS: NICOTINE 21 MG/24 HOURS TOPICAL PATCH TD SCH (09:23)
[2024-01-23 09:26] LABS: CHLORIDE 110 mmol/L (98-107); POTASSIUM 4.3 mmol/L (3.5-5.1); SODIUM 142 mmol/L (136-145)
[2024-01-23 09:29] LABS: ANION GAP 7 mmol/L (4-13); CALCIUM 8.7 mg/dL (8.5-10.1); CO2 25 mmol/L (21-32)
[2024-01-23 09:30] LABS: BLOOD UREA NITROGEN 11.1 mg/dL (7-18); GLUCOSE,RANDOM 93 mg/dL (74-106)
[2024-01-23 09:33] LABS: SGPT/ALT 26 U/L (13-61)
[2024-01-23 09:34] LABS: BILIRUBIN,TOTAL 0.6 mg/dL (0.2-1); CREATININE 0.9 mg/dL (0.55-1.3); SGOT/AST 17 U/L (15-37)
[2024-01-23 09:35] LABS: ALK PHOS 71 U/L (45-117)
[2024-01-23] MEDS ORDERED: chlordiazePOXIDE HCL 25 MG CAPSULE PO PRN (10:58)
[2024-01-23] MEDS: hydrOXYzine PAMOATE 25 MG CAPSULE (FP) PO PRN (11:25)
[2024-01-23] MEDS: chlordiazePOXIDE HCL 25 MG CAPSULE PO SCH (11:25)
[2024-01-24] MEDS: chlordiazePOXIDE HCL 25 MG CAPSULE PO SCH (05:58)
[2024-01-25] MEDS: chlordiazePOXIDE HCL 10 MG CAPSULE PO SCH (06:31)
[2024-01-25] MEDS: NALTREXONE HCL 50 MG TABLET PO SCH (15:07)
[2024-01-25] MEDS: chlordiazePOXIDE HCL 10 MG CAPSULE PO PRN (18:07)
[2024-01-26] MEDS ORDERED: chlordiazePOXIDE HCL 10 MG CAPSULE PO SCH (05:00)
[2024-01-26] MEDS: PANTOPRAZOLE 40 MG TABLET PO SCH (10:57)
[2024-01-26] MEDS: LIDOCAINE TP SCH (10:58)
[2024-01-26] MEDS: LIDOCAINE 4% PATCH TP SCH (14:42)
[2024-01-26] MEDS: LORATADINE 10 MG TABLET PO SCH (15:53)
[2024-01-26 21:21] VITALS: RESP 16
[2024-01-26] MEDS: GABAPENTIN 300 MG CAPSULE PO SCH (22:21)
[2024-01-27] MEDS ORDERED: chlordiazePOXIDE HCL 10 MG CAPSULE PO ONE (05:00)
[2024-01-27 06:22] VITALS: BP 127/75; PULSE 76; TEMP 97.3
== END 2024-01-27 09:30 | disposition home or self-care (01) | DRG 774 ==
LOC: YASAS 11:07 → Y6N 12:46
PROVIDERS: ADMIT Allergy & Immunology; ATTEND Surgery
PROC: HZ2ZZZZ Detoxification Services for Substance Abuse Treatment (ICD-10-PCS; principal; 2024-01-22)
DX: F10.230 Alcohol dependence with withdrawal, uncomplicated (principal); F14.20 Cocaine dependence, uncomplicated; F12.20 Cannabis dependence, uncomplicated; F17.210 Nicotine dependence, cigarettes, uncomplicated; I10 Essential (primary) hypertension; J30.2 Other seasonal allergic rhinitis; M19.90 Unspecified osteoarthritis, unspecified site; R26.2 Difficulty in walking, not elsewhere classified; Z99.89 Dependence on other enabling machines and devices; Z91.013 Allergy to seafood; Z96.643 Presence of artificial hip joint, bilateral; Z56.0 Unemployment, unspecified
CPT/HCPCS: 36415; 80053; 80305; 80307; 85027; 86780; 93005; 93010